=== PATIENT | female | born 1935 | race Caucasian/White ===

== ENCOUNTER → 2020-05-25 | Outpatient (CLI) | payer MEDICARE ==
[2020-05-25 18:40] LABS: HEMATOCRIT 42 % (35-52); HEMOGLOBIN 13.7 G/DL (11.5-16.0); MEAN CORPUSCULAR HEMOGLOBIN 28 PG (25-34); MEAN CORPUSCULAR HGB CONC 32 G/DL (32-36); MEAN CORPUSCULAR VOLUME 86 FL (80-99); WHITE BLOOD COUNT 11.6 10^3/uL (4.3-11.0)
[2020-05-25 18:41] LABS: BASOPHILS # (AUTO) 0.1 10^3/uL (0.0-0.1); BASOPHILS % (AUTO) 1 % (0-10); EOSINOPHILS # (AUTO) 0.5 10^3/uL (0.0-0.3); EOSINOPHILS % (AUTO) 4 % (0-10); LYMPHOCYTES # (AUTO) 2.2 X 10^3 (1.0-4.0); LYMPHOCYTES % (AUTO) 19 % (12-44); MEAN PLATELET VOLUME 10.5 FL (7.4-10.4); MONOCYTES # (AUTO) 1.1 X 10^3 (0.0-1.0); MONOCYTES % (AUTO) 10 % (0-12); NEUTROPHILS # (AUTO) 7.6 X 10^3 (1.8-7.8); NEUTROPHILS % (AUTO) 66 % (42-75); PLATELET COUNT 261 10^3/uL (130-400)
[2020-05-26 16:29] LABS: BILIRUBIN,TOTAL 0.5 MG/DL (0.1-1.0); CREATININE SERUM 1.66 MG/DL (0.60-1.30); POTASSIUM 5.6 MMOL/L (3.6-5.0)
[2020-05-26 16:30] LABS: ALBUMIN 4.4 GM/DL (3.2-4.5); TOTAL PROTEIN 7.8 GM/DL (6.4-8.2)
== END ==
LOC: LAB FS 16:37
PROVIDERS: ATTEND Family Medicine
DX: E11.9 Type 2 diabetes mellitus without complications (principal); D64.9 Anemia, unspecified; E03.9 Hypothyroidism, unspecified
CPT/HCPCS: 36415; 80053; 80061; 82043; 83036; 84443; 85025

== ENCOUNTER → 2020-06-01 | Outpatient (CLI) | payer MEDICARE ==
[2020-06-01 12:14] LABS: CLARITY,URINE CLEAR; COLOR,URINE YELLOW; GLUCOSE, URINE (UA) 3+ (NEGATIVE); PH,URINE 5.5 (5-9); PROTEIN,URINE NEGATIVE (NEGATIVE)
[2020-06-01 12:15] LABS: BACTERIA,URINE NEGATIVE /HPF; BILIRUBIN,URINE NEGATIVE (NEGATIVE); KETONES,URINE NEGATIVE (NEGATIVE); LEUKOCYTE ESTERASE ,URINE NEGATIVE (NEGATIVE); NITRITE,URINE NEGATIVE (NEGATIVE); SQUAMOUS EPITHELIAL CELL,UR 0-2 /HPF
== END ==
LOC: LAB FS 11:17
PROVIDERS: ATTEND Family Medicine
DX: R41.0 Disorientation, unspecified (principal)
CPT/HCPCS: 81000

== ENCOUNTER → 2020-06-02 | Outpatient (CLI) | payer MEDICARE ==
[2020-06-02 10:18] LABS: CALCIUM 9.8 MG/DL (8.5-10.1); CREATININE SERUM 1.35 MG/DL (0.60-1.30); POTASSIUM 5.2 MMOL/L (3.6-5.0)
== END ==
LOC: LAB FS 09:16
PROVIDERS: ATTEND Family Medicine
DX: R41.0 Disorientation, unspecified (principal)
CPT/HCPCS: 36415; 80048

== ENCOUNTER → 2020-06-17 | Outpatient (CLI) | payer MEDICARE ==
[2020-06-17 15:35] LABS: CLARITY,URINE CLEAR; COLOR,URINE YELLOW; GLUCOSE, URINE (UA) TRACE (NEGATIVE); PH,URINE 5.5 (5-9); PROTEIN,URINE 1+ (NEGATIVE)
[2020-06-17 15:36] LABS: BACTERIA,URINE TRACE /HPF; BILIRUBIN,URINE NEGATIVE (NEGATIVE); KETONES,URINE NEGATIVE (NEGATIVE); LEUKOCYTE ESTERASE ,URINE 1+ (NEGATIVE); NITRITE,URINE NEGATIVE (NEGATIVE); SQUAMOUS EPITHELIAL CELL,UR 0-2 /HPF
== END ==
LOC: LAB FS 15:15
PROVIDERS: ATTEND Family Medicine
DX: R41.0 Disorientation, unspecified (principal)
CPT/HCPCS: 81000; 87088

== ENCOUNTER → 2020-06-26 | Outpatient (CLI) | payer MEDICARE | LOC: LAB FS 10:47 | PROVIDERS: ATTEND Family Medicine | DX: R41.0 Disorientation, unspecified (principal) | CPT/HCPCS: 36415; 82607 ==

== ENCOUNTER 2020-07-03 17:07 | Emergency (ER) | payer MEDICARE ==
[~2020-07-03] VITALS: Ht 162.6 cm; Wt 70.3 kg
--- NOTE | 2020-07-03 17:16 | ED Chest Pain ---
General Chief Complaint: Chest Pain Stated Complaint: CHEST PAIN Source: patient Exam Limitations: no limitations History of Present Illness Date Seen by Provider: Jul 03, 2020 Time Seen by Provider: 17:14 Initial Comments 85-year-old female presents with left-sided chest pain. She reports it comes and goes. Over the last year it has happened 3 or 4 times. She is here because she was "encouraged by her daughter" patient is not having pain at this time. She reports that when it happens it lasts for 30 minutes to an hour. Patient says maybe she get short of breath is not really sure. She does not get nauseated no vomiting or diaphoresis the pain does not radiate. The pain started when she was sent to [facility]. She states that nothing seems to make it worse or better and when it happened she's nothing seems to trigger it. Patient reports she had open heart surgery 2 years ago and [place]. She has not followed with her racing mechanic in the last year since she started having these occasional pains. Pain is reproducible with palpation to the area Allergies and Home Medications Allergies Coded Allergies: No Known Drug Allergies (Unverified , 07/03/20) Patient Home Medication List Home Medication List Reviewed: Yes Review of Systems Review of Systems Constitutional: No chills, No fever Respiratory: Denies Cough, Denies Orthopnea Cardiovascular: Chest Pain; Denies Irregular Heart Rate, Denies Palpitations Gastrointestinal: Abdominal Pain; Denies Nausea; Poor Appetite; Denies Vomiting Skin: no symptoms reported Past Bbodnxi-Zkznsq-Pdebuc Hx Past Med/Social Hx: Reviewed Nursing Past Med/Soc Hx Physical Exam Vital Signs Vital Signs - First Documented 07/03/20 17:12 Pulse 70 Resp 20 B/P (MAP) 158/97 (117) Pulse Ox 95 O2 Delivery Room Air Capillary Refill : Height, Weight, BMI Height: '" Weight: lbs. oz. 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 Norm as Tested Skin: Normal Color, Warm/Dry Progress/Results/Core Measures Results/Orders Lab Results Laboratory Tests Test 07/03/20 18:00 07/03/20 20:08 Range/Units White Blood Count 9.1 4.3-11.0 10^3/uL Red Blood Count 4.37 4.35-5.85 10^6/uL Hemoglobin 12.1 11.5-16.0 G/DL Hematocrit 37 35-52 % Mean Corpuscular Volume 85 80-99 FL Mean Corpuscular Hemoglobin 28 25-34 PG Mean Corpuscular Hemoglobin Concent 33 32-36 G/DL Red Cell Distribution Width 12.7 10.0-14.5 % Platelet Count 206 130-400 10^3/uL Mean Platelet Volume 10.3 7.4-10.4 FL Immature Granulocyte % (Auto) 0 % Neutrophils (%) (Auto) 65 42-75 % Lymphocytes (%) (Auto) 21 12-44 % Monocytes (%) (Auto) 10 0-12 % Eosinophils (%) (Auto) 4 0-10 % Basophils (%) (Auto) 1 0-10 % Neutrophils # (Auto) 5.9 1.8-7.8 X 10^3 Lymphocytes # (Auto) 1.9 1.0-4.0 X 10^3 Monocytes # (Auto) 0.9 0.0-1.0 X 10^3 Eosinophils # (Auto) 0.4 H 0.0-0.3 10^3/uL Basophils # (Auto) 0.1 0.0-0.1 10^3/uL Immature Granulocyte # (Auto) 0.0 0.0-0.1 10^3/uL Prothrombin Time 13.1 12.2-14.7 SEC INR Comment 1.0 0.8-1.4 Activated Partial Thromboplast Time 22 L 24-35 SEC Sodium Level 133 L 135-145 MMOL/L Potassium Level 4.6 3.6-5.0 MMOL/L Chloride Level 99 98-107 MMOL/L Carbon Dioxide Level 22 21-32 MMOL/L Anion Gap 12 5-14 MMOL/L Blood Urea Nitrogen 27 H 7-18 MG/DL Creatinine 1.26 0.60-1.30 MG/DL Estimat Glomerular Filtration Rate 40 BUN/Creatinine Ratio 21 Glucose Level 158 H 70-105 MG/DL Calcium Level 9.9 8.5-10.1 MG/DL Corrected Calcium 9.7 8.5-10.1 MG/DL Magnesium Level 1.4 L 1.6-2.4 MG/DL Total Bilirubin 0.3 0.1-1.0 MG/DL Aspartate Amino Transf (AST/SGOT) 31 5-34 U/L Alanine Aminotransferase (ALT/SGPT) 23 0-55 U/L Alkaline Phosphatase 70 40-136 U/L Myoglobin 38.2 10.0-92.0 NG/ML Troponin I < 0.30 < 0.30 <0.30 NG/ML Total Protein 6.9 6.4-8.2 GM/DL Albumin 4.2 3.2-4.5 GM/DL My Orders Orders - JORDAN,QUINN L DO Cbc With Automated Diff (07/03/20 17:16) Magnesium (07/03/20 17:16) Chest 1 View Ap/Pa Only (07/03/20 17:16) Ekg Tracing (07/03/20 17:16) Comprehensive Metabolic Panel (07/03/20 17:16) Myoglobin Serum (07/03/20 17:16) Protime With Inr (07/03/20 17:16) Partial Thromboplastin Time (07/03/20 17:16) O2 (07/03/20 17:16) Monitor-Rhythm Ecg Trace Only (07/03/20 17:16) Ed Iv/Invasive Line Start (07/03/20 17:16) Troponin I Fs (07/03/20 17:16) Aspirin Chewable Tablet (Baby Aspirin Ch (07/03/20 17:30) Famotidine Injection (Pepcid Injection) (07/03/20 17:20) Ekg Tracing (07/03/20 19:33) Troponin I Fs (07/03/20 19:33) Medications Given in ED Current Medications Medications Dose Ordered Sig/Sin Route Start Time Stop Time Status Last Admin Dose Admin Aspirin 324 mg ONCE ONCE PO 07/03/20 17:30 07/03/20 17:31 DC 07/03/20 18:17 324 MG Vital Signs/I&O 07/03/20 07/03/20 07/03/20 17:12 17:17 21:05 Pulse 70 96 Resp 20 20 B/P (MAP) 158/97 (117) 165/70 Pulse Ox 95 97 O2 Delivery Room Air Room Air Room Air Progress Progress Note : Time: 20:50 Progress Note Since chest pain had resolved prior to arrival to the ER with no further chest pain while in the ER. Patient had 2 negative troponins and no acute ST elevation on EKG. Patient was offered admission for further evaluation but she would prefer to follow-up with her racing mechanic next week. She will return to the ER if symptoms return or worsen. Patient stable and will be discharged home. Initial ECG Impression Date: Jul 03, 2020 Initial ECG Impression Time: 17:30 Initial ECG Rate: 72 Initial ECG Rhythm: Normal Sinus Initial ECG Intervals RBBB Comment NSR HR 72, RBBB, no acute findings Diagnostic Imaging Diagonstic Imaging: Xray Plain Films/CT/US/NM/MRI: chest Comments [facility], [place] NAME: RANDY COBURN [facility] REC#: [id number] PT STATUS: REG ER : 1935 PHYSICIAN: QUINN JORDAN DO ADMIT DATE: 07/03/20/ER FS Signed Date of Exam:07/03/20 CHEST 1 VIEW AP/PA ONLY INDICATION: Chest pain. COMPARISON: None. EXAMINATION: Single frontal view of the chest was obtained. FINDINGS: Normal heart size and pulmonary vascularity. The lungs are well aerated and clear. No large pleural effusion or pneumothorax is seen. The visualized osseous structures show no acute abnormality. Sternotomy wires are noted. IMPRESSION: No acute cardiopulmonary process. Dictated by: Dictated on workstation # [id number] Dict: 07/03/20 1730 Trans: 07/03/20 1745 [facility] [id number] Interpreted by: ANASTASIIA WILLIAMSON MD Departure Impression Primary Impression: Chest pain Qualified Codes: R07.9 - Chest pain, unspecified Disposition: HOME, SELF-CARE Condition: Stable Departure-Patient Inst. Referrals: HEBER BETHEA MD (PCP/Family) Primary Care Physician Patient Instructions: Chest Pain (DC) Add. Discharge Instructions: Follow-up with your racing mechanic and primary care provider next week for further evaluation Return to the ER with any concerns such as recurrent chest pain, shortness of breath or pain that radiates into her arm or neck. All discharge instructions reviewed with patient and/or family. Voiced understanding. QUINN JORDAN DO Jul 03, 2020 17:16
[2020-07-03] MEDS ORDERED: FAMOTIDINE 20MG/2ML IV (PEPCID) IV STA (17:20)
[2020-07-03] MEDS ORDERED: ASPIRIN 81 MG CHEW (CHILDREN'S ASA) PO ONE (17:30)
--- NOTE | 2020-07-03 17:43 | Diagnostic Imaging Report ---
INDICATION: Chest pain. COMPARISON: None. EXAMINATION: Single frontal view of the chest was obtained. FINDINGS: Normal heart size and pulmonary vascularity. The lungs are well aerated and clear. No large pleural effusion or pneumothorax is seen. The visualized osseous structures show no acute abnormality. Sternotomy wires are noted. IMPRESSION: No acute cardiopulmonary process. Dictated by: Dictated on workstation # [id number]
[2020-07-03 18:09] LABS: HEMATOCRIT 37 % (35-52); HEMOGLOBIN 12.1 G/DL (11.5-16.0); MEAN CORPUSCULAR HEMOGLOBIN 28 PG (25-34); MEAN CORPUSCULAR VOLUME 85 FL (80-99); WHITE BLOOD COUNT 9.1 10^3/uL (4.3-11.0)
[2020-07-03 18:10] LABS: BASOPHILS # (AUTO) 0.1 10^3/uL (0.0-0.1); BASOPHILS % (AUTO) 1 % (0-10); EOSINOPHILS # (AUTO) 0.4 10^3/uL (0.0-0.3); EOSINOPHILS % (AUTO) 4 % (0-10); LYMPHOCYTES # (AUTO) 1.9 X 10^3 (1.0-4.0); LYMPHOCYTES % (AUTO) 21 % (12-44); MEAN CORPUSCULAR HGB CONC 33 G/DL (32-36); MEAN PLATELET VOLUME 10.3 FL (7.4-10.4); MONOCYTES # (AUTO) 0.9 X 10^3 (0.0-1.0); MONOCYTES % (AUTO) 10 % (0-12); NEUTROPHILS # (AUTO) 5.9 X 10^3 (1.8-7.8); NEUTROPHILS % (AUTO) 65 % (42-75); PLATELET COUNT 206 10^3/uL (130-400)
[2020-07-03 18:31] LABS: PROTHROMBIN TIME PATIENT 13.1 SEC (12.2-14.7)
[2020-07-03 18:32] LABS: CALCIUM 9.9 MG/DL (8.5-10.1); CREATININE SERUM 1.26 MG/DL (0.60-1.30); MAGNESIUM 1.4 MG/DL (1.6-2.4); POTASSIUM 4.6 MMOL/L (3.6-5.0)
[2020-07-03 18:33] LABS: ALBUMIN 4.2 GM/DL (3.2-4.5); BILIRUBIN,TOTAL 0.3 MG/DL (0.1-1.0); TOTAL PROTEIN 6.9 GM/DL (6.4-8.2)
[2020-07-03 21:05] VITALS: BP 165/70
== END 2020-07-03 21:09 | disposition home or self-care (01) ==
LOC: EDUNIT# 17:07 → ER FS 17:09
DX: R07.9 Chest pain, unspecified (principal)
CPT/HCPCS: 36415; 71045; 80053; 83735; 83874; 84484; 85025; 85610; 85730; 93005; 93041

== ENCOUNTER → 2020-08-31 | Outpatient (CLI) | payer MEDICARE ==
[2020-08-31 10:03] LABS: CREATININE SERUM 1.36 MG/DL (0.60-1.30); POTASSIUM 5.1 MMOL/L (3.6-5.0)
[2020-08-31 10:04] LABS: ALBUMIN 4.1 GM/DL (3.2-4.5); BILIRUBIN,TOTAL 0.4 MG/DL (0.1-1.0); CALCIUM 9.8 MG/DL (8.5-10.1)
== END ==
LOC: LAB FS 09:15
PROVIDERS: ATTEND Family Medicine
DX: E11.9 Type 2 diabetes mellitus without complications (principal); E03.9 Hypothyroidism, unspecified; R41.0 Disorientation, unspecified
CPT/HCPCS: 36415; 80053; 80061; 82607; 83036; 84443

== ENCOUNTER → 2020-09-01 | Outpatient (CLI) | payer MEDICARE ==
--- NOTE | 2020-09-01 10:54 | Diagnostic Imaging Report ---
INDICATION: PAIN IN RIGHT HIP, post fall last night TECHNIQUE: 2 views of the right hip. CORRELATION STUDY: None FINDINGS: Images of the hip demonstrate no evidence for acute fracture. Alignment is anatomic. The femoral head acetabular relationship is unremarkable. The bony trabecular pattern is intact. IMPRESSION: 1. Negative for acute bony abnormality of the right hip. Dictated by: Dictated on workstation # [id number]
== END ==
LOC: RAD FS 10:20
PROVIDERS: ATTEND Family Medicine
DX: M25.551 Pain in right hip (principal)
CPT/HCPCS: 73502

== ENCOUNTER → 2020-11-09 | Outpatient (CLI) | payer MEDICARE ==
--- NOTE | 2020-11-09 14:34 | Diagnostic Imaging Report ---
INDICATION: INJURY OF RIGHT SHOULDER TECHNIQUE: 2 views of the right shoulder CORRELATION STUDY: None FINDINGS: The glenohumeral and acromioclavicular alignment are maintained and unremarkable. There is no evidence for acute fracture or dislocation. Mild soft tissue calcification with superior lateral humeral head, could be reflective of calcific tendinosis. IMPRESSION: 1. Negative for acute bony abnormality about the shoulder. Dictated by: Dictated on workstation # [id number]
== END ==
LOC: RAD FS 13:57
PROVIDERS: ATTEND Family Medicine
DX: S49.91XA Unspecified injury of right shoulder and upper arm, initial encounter (principal); X58.XXXA Exposure to other specified factors, initial encounter
CPT/HCPCS: 73030

== ENCOUNTER → 2020-11-30 | Outpatient (CLI) | payer MEDICARE ==
[2020-11-30 11:52] LABS: ALBUMIN 4.2 GM/DL (3.2-4.5); BILIRUBIN,TOTAL 0.4 MG/DL (0.1-1.0); CALCIUM 9.9 MG/DL (8.5-10.1); CREATININE SERUM 1.32 MG/DL (0.60-1.30); TOTAL PROTEIN 7.3 GM/DL (6.4-8.2)
== END ==
LOC: LAB FS 08:44
PROVIDERS: ATTEND Family Medicine
DX: E11.9 Type 2 diabetes mellitus without complications (principal)
CPT/HCPCS: 36415; 80053; 83036

== ENCOUNTER → 2021-03-05 | Outpatient (CLI) | payer MEDICARE ==
[2021-03-05 10:21] LABS: BILIRUBIN,TOTAL 0.4 MG/DL (0.1-1.0); CALCIUM 9.8 MG/DL (8.5-10.1); CREATININE SERUM 1.29 MG/DL (0.60-1.30); POTASSIUM 4.8 MMOL/L (3.6-5.0)
[2021-03-05 10:22] LABS: TOTAL PROTEIN 6.9 GM/DL (6.4-8.2)
== END ==
LOC: LAB FS 09:08
PROVIDERS: ATTEND Family Medicine
DX: E11.9 Type 2 diabetes mellitus without complications (principal); E03.9 Hypothyroidism, unspecified
CPT/HCPCS: 36415; 80053; 83036; 84443

== ENCOUNTER → 2021-03-17 | Outpatient (CLI) | payer MEDICARE | LOC: CARD 08:33 | PROVIDERS: ATTEND Student in an Organized Health Care Education/Training Program | DX: I08.0 Rheumatic disorders of both mitral and aortic valves (principal); I42.1 Obstructive hypertrophic cardiomyopathy; Z95.2 Presence of prosthetic heart valve | CPT/HCPCS: 93306 ==

== ENCOUNTER 2021-07-24 21:31 | Inpatient (IN) | payer MEDICARE ==
[~2021-07-24] VITALS: Ht 162.6 cm; Wt 70.6 kg
[2021-07-24] MEDS ORDERED: LACTATED RINGERS 1,000 ML IV SCH (22:00)
[2021-07-24 22:03] LABS: BASOPHILS % (AUTO) 1 % (0-10); EOSINOPHILS % (AUTO) 6 % (0-10); HEMATOCRIT 37 % (35-52); HEMOGLOBIN 12.5 g/dL (11.5-16.0); LYMPHOCYTES # (AUTO) 2.9 X 10^3 (1.0-4.0); LYMPHOCYTES % (AUTO) 24 % (12-44); MEAN CORPUSCULAR HEMOGLOBIN 28 pg (25-34); MEAN CORPUSCULAR HGB CONC 34 g/dL (32-36); MEAN CORPUSCULAR VOLUME 83 fL (80-99); MONOCYTES # (AUTO) 1.3 X 10^3 (0.0-1.0); MONOCYTES % (AUTO) 11 % (0-12); NEUTROPHILS # (AUTO) 6.7 X 10^3 (1.8-7.8); NEUTROPHILS % (AUTO) 57 % (42-75); PLATELET COUNT 278 10^3/uL (130-400); WHITE BLOOD COUNT 11.7 10^3/uL (4.3-11.0)
[2021-07-24 22:04] LABS: BASOPHILS # (AUTO) 0.1 10^3/uL (0.0-0.1); EOSINOPHILS # (AUTO) 0.7 10^3/uL (0.0-0.3)
[2021-07-24 22:05] LABS: PROTHROMBIN TIME PATIENT 13.2 SEC (12.2-14.7)
[2021-07-24 22:06] LABS: ALANINE AMINOTRANSFERASE 18 U/L (0-55); ALKALINE PHOSPHATASE 70 U/L (40-136); BILIRUBIN,TOTAL 0.3 MG/DL (0.1-1.0); BUN/CREATININE RATIO 25; CALCIUM 9.8 MG/DL (8.5-10.1); CARBON DIOXIDE 18 MMOL/L (21-32); CHLORIDE 93 MMOL/L (98-107); CREATININE SERUM 1.92 MG/DL (0.60-1.30); GFR ESTIMATED 25; GLUCOSE 69 MG/DL (70-105); POTASSIUM 4.7 MMOL/L (3.6-5.0); SODIUM 126 MMOL/L (135-145)
--- NOTE | 2021-07-24 22:06 | ED General ---
General Chief Complaint: Altered Mental Status Stated Complaint: ALTERED MENTAL STATUS Nursing Triage Note: pt arrives per POV w/ daughters. Pt assisted out of vehicle to wheelchair. Into ED to Room 5. Assisted to bed, placed in gown and attached to lunchroom monitor. Source of Information: Patient, Family Exam Limitations: No Limitations History of Present Illness Date Seen by Provider: Jul 24, 2021 Time Seen by Provider: 21:35 Initial Comments 86-year-old female with past medical history of heart valve replacement (family unsure which valve) not on anticoagulation, thyroid disease, diu-zgtserw-zhhosdhpr diabetic coming in due to confusion. The patient lives with her daughter who provides the majority of the history. The patient has had nonbloody diarrhea for almost 1 week now and has been significant. She has not been on antibiotics recently. She started taking Imodium and it finally did slow down today. Went to urgent care this morning was also prescribed dicyclomine and had 2 doses of that today. Flu and COVID testing were negative at the urgent care. Around 9:00 became more confused and was answering questions inappropriately for family. They then brought her here. Patient is denying any pain anywhere, nausea, vomiting, chest pain, shortness of breath, abdominal pain, focal weakness, numbness, vision changes, headache, fever, or any other concerns. Allergies and Home Medications Allergies Coded Allergies: No Known Drug Allergies (Unverified , 07/03/20) Patient Home Medication List Home Medication List Reviewed: Yes Levothyroxine Sodium (Levothyroxine Sodium) 50 Mcg Tablet, 50 MCG PO DAILY, (Reported) Entered as Reported by: TELLO MACIEL on 07/25/21557 Last Action: Reviewed Lisinopril (Lisinopril) 20 Mg Tablet, 20 MG PO DAILY, (Reported) Entered as Reported by: TELLO MACIEL on 07/25/21555 Last Action: Reviewed Metformin HCl (Metformin HCl) 500 Mg Tablet, 500 MG PO BID WITH MEALS, (Reported) Entered as Reported by: TELLO MACIEL on 07/25/21557 Last Action: Reviewed Metoprolol Tartrate (Metoprolol Tartrate) 50 Mg Tablet, 50 MG PO DAILY, (Reported) Entered as Reported by: TELLO MACIEL on 07/25/21555 Last Action: Reviewed Metoprolol Tartrate (Metoprolol Tartrate) 25 Mg Tablet, 25 MG PO HS, (Reported) Entered as Reported by: TELLO MACIEL on 07/25/21 0556 Last Action: Reviewed Pravastatin Sodium (Pravastatin Sodium) 40 Mg Tablet, 40 MG PO DAILY, (Reported) Entered as Reported by: TELLO MACIEL on 07/25/21 0558 Last Action: Reviewed Review of Systems Review of Systems Constitutional: No chills, No fever EENTM: No blurred vision Respiratory: No cough, No short of breath Cardiovascular: No chest pain Gastrointestinal: No abdominal pain; diarrhea; No nausea, No vomiting Genitourinary: no symptoms reported Musculoskeletal: no symptoms reported Skin: no symptoms reported Psychiatric/Neurological: Other (AMS) Hematologic/Lymphatic: No Symptoms Reported Immunological/Allergic: no symptoms reported All Other Systems Reviewed Negative Unless Noted: Yes Past Ocacasy-Ckekyn-Crzhgd Hx Patient Social History Tobacco Use?: No Seasonal Allergies Seasonal Allergies: No Past Medical History Surgeries: Yes (colon resection) CABG Respiratory: No Cardiac: Yes Coronary Artery Disease, Heart Attack Neurological: No Genitourinary: No Gastrointestinal: No Musculoskeletal: No Endocrine: Yes Diabetes, Insulin dep HEENT: No Cancer: No Psychosocial: No Integumentary: No Physical Exam Vital Signs Vital Signs - First Documented 07/24/21 21:57 Temp 35.5 Pulse 71 Resp 16 B/P (MAP) 103/54 (70) Pulse Ox 97 O2 Delivery Simple Mask Capillary Refill : Height, Weight, BMI Height: '" Weight: lbs. oz. kg; 26.00 BMI Method: General Appearance: No Apparent Distress, WD/WN Eyes: Bilateral Eye Normal Inspection HEENT: PERRL/EOMI, Normal ENT Inspection, Pharynx Normal Neck: Full Range of Motion, Normal Inspection, Non Tender, Supple Respiratory: Chest Non Tender, Lungs Clear, Normal Breath Sounds, No Accessory Muscle Use, No Respiratory Distress Cardiovascular: Regular Rate, Rhythm, No Edema, Normal Peripheral Pulses Gastrointestinal: Normal Bowel Sounds, Non Tender, Soft; No Distended, No Guarding Back: Normal Inspection, No CVA Tenderness, No Vertebral Tenderness Extremity: Normal Capillary Refill, Normal Inspection, Normal Range of Motion, Non Tender, No Calf Tenderness, No Pedal Edema Neurologic/Psychiatric: Alert, No Motor/Sensory Deficits, Normal Mood/Affect, 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 Norm as Tested, Disoriented Skin: Normal Color, Warm/Dry Lymphatic: No Adenopathy Progress/Results/Core Measures Suspected Sepsis SIRS Temperature: Pulse: 71 Respiratory Rate: 16 Laboratory Tests 07/24/21 21:44: White Blood Count 11.7H Blood Pressure 103 /54 Mean: 70 Laboratory Tests 07/24/21 21:44: Creatinine 1.92H, INR Comment 1.0, Platelet Count 278, Total Bilirubin 0.3 Results/Orders Lab Results Laboratory Tests Test 07/24/21 21:44 07/24/21 22:09 Range/Units White Blood Count 11.7 H 4.3-11.0 10^3/uL Red Blood Count 4.50 3.80-5.11 10^6/uL Hemoglobin 12.5 11.5-16.0 g/dL Hematocrit 37 35-52 % Mean Corpuscular Volume 83 80-99 fL Mean Corpuscular Hemoglobin 28 25-34 pg Mean Corpuscular Hemoglobin Concent 34 32-36 g/dL Red Cell Distribution Width 12.8 10.0-14.5 % Platelet Count 278 130-400 10^3/uL Mean Platelet Volume 10.0 9.0-12.2 fL Immature Granulocyte % (Auto) 0 % Neutrophils (%) (Auto) 57 42-75 % Lymphocytes (%) (Auto) 24 12-44 % Monocytes (%) (Auto) 11 0-12 % Eosinophils (%) (Auto) 6 0-10 % Basophils (%) (Auto) 1 0-10 % Neutrophils # (Auto) 6.7 1.8-7.8 X 10^3 Lymphocytes # (Auto) 2.9 1.0-4.0 X 10^3 Monocytes # (Auto) 1.3 H 0.0-1.0 X 10^3 Eosinophils # (Auto) 0.7 H 0.0-0.3 10^3/uL Basophils # (Auto) 0.1 0.0-0.1 10^3/uL Immature Granulocyte # (Auto) 0.0 0.0-0.1 10^3/uL Prothrombin Time 13.2 12.2-14.7 SEC INR Comment 1.0 0.8-1.4 Activated Partial Thromboplast Time 28 24-35 SEC Sodium Level 126 L 135-145 MMOL/L Potassium Level 4.7 3.6-5.0 MMOL/L Chloride Level 93 L 98-107 MMOL/L Carbon Dioxide Level 18 L 21-32 MMOL/L Anion Gap 15 H 5-14 MMOL/L Blood Urea Nitrogen 48 H 7-18 MG/DL Creatinine 1.92 H 0.60-1.30 MG/DL Estimat Glomerular Filtration Rate 25 BUN/Creatinine Ratio 25 Glucose Level 69 L 70-105 MG/DL Calcium Level 9.8 8.5-10.1 MG/DL Corrected Calcium 9.8 8.5-10.1 MG/DL Total Bilirubin 0.3 0.1-1.0 MG/DL Aspartate Amino Transf (AST/SGOT) 26 5-34 U/L Alanine Aminotransferase (ALT/SGPT) 18 0-55 U/L Alkaline Phosphatase 70 40-136 U/L Troponin I < 0.30 <0.30 NG/ML Total Protein 7.3 6.4-8.2 GM/DL Albumin 4.0 3.2-4.5 GM/DL Glucometer 69 L 70-110 MG/DL My Orders Orders - LYLE BHARDWAJ MD Ct Head Wo (07/24/21 21:57) Cbc With Automated Diff (07/24/21 21:57) Comprehensive Metabolic Panel (07/24/21 21:57) Protime With Inr (07/24/21 21:57) Partial Thromboplastin Time (07/24/21 21:57) Ua Culture If Indicated (07/24/21 21:57) Accucheck Stat ONCE (07/24/21 21:57) Troponin I Fs (07/24/21 21:57) Chest 1 View Ap/Pa Only (07/24/21 21:57) Ekg Tracing (07/24/21 21:57) Lactated Ringers (Lr 1000 Ml Iv Solution (07/24/21 22:00) Vital Signs/I&O 07/24/21 07/25/21 21:57 03:35 Temp 35.5 Pulse 71 Resp 16 B/P (MAP) 103/54 (70) Pulse Ox 97 O2 Delivery Simple Mask Room Air Capillary Refill : Blood Pressure Mean: 70 Progress Note : Progress Note 86-year-old female with above history coming in with family due to confusion and diarrhea. ABCs were intact and vitals were stable on presentation. Initial blood pressure is slightly low around 100/60. An IV was placed and she was given a bolus of IV fluids with improvement in her blood pressure. Basic labs significant for low sodium at 127, ETTA with creatinine around 1.9, negative troponin. Chest x-ray ordered and interpreted by me with no obvious pneumonia. CT head negative for any acute abnormalities, and her exam on repeat is nonfocal again. No signs of stroke clinically. She does not have slurred speech for me. She is however confused, and with a low sodium and worsening kidney function I recommended admission. Discussed the case with Dr. Prajapati who will admit her under observation status. ECG Initial ECG Impression Date: Jul 24, 2021 Initial ECG Impression Time: 22:29 Initial ECG Rate: 67 Initial ECG Rhythm: Normal Sinus Comment Wide QRS with a right bundle branch block, no significant ST changes Diagnostic Imaging Diagonstic Imaging: Xray (chest), CT (head) [facility] [place] [place] NAME: RANDY COBURN [facility] REC#: [id number] PT STATUS: REG ER : 1935 PHYSICIAN: LYLE BHARDWAJ MD ADMIT DATE: 07/24/21/ER FS Draft Date of Exam:07/24/21 CT HEAD WO INDICATION: Acute mental status changes. EXAMINATION: CT brain without contrast, 07/24/2021. All CT scans use one or more of the following dose optimizing techniques: automated exposure control, MA and/or KvP adjustment based on patient size and exam type or iterative reconstruction. FINDINGS: Multiple axial images of the brain without contrast. There is no evidence for acute hemorrhage or infarct. There is no mass, mass effect, midline shift or hydrocephalus. The paranasal sinuses and mastoid air cells demonstrate no acute abnormality. IMPRESSION: No acute intracranial process. Dictated on workstation # [id number] Dict: 07/24/212226 Trans: 07/24/212229 PJE [id number] Interpreted by: HANK SCALES MD Electronically signed by: [facility] [place] [place] NAME: RANDY COBURN [facility] REC#: [id number] PT STATUS: REG ER : 1935 PHYSICIAN: LYLE BHARDWAJ MD ADMIT DATE: 07/24/21/ER FS Signed Date of Exam:07/24/21 CHEST 1 VIEW AP/PA ONLY INDICATION: Acute mental status change. EXAMINATION: Chest, 07/24/2021. COMPARISON: 07/03/2020. FINDINGS: There are calcified lymph nodes in the left perihilar region with a calcified granuloma in the left lung base. There are no infiltrates, effusions or pneumothorax. The heart and pulmonary vasculature appear stable. Sternotomy wires and mediastinal clips are noted. IMPRESSION: Chronic findings with no acute cardiopulmonary process. Dictated by: Dictated on workstation # [id number] Dict: 07/24/212236 Trans: 07/24/212246 PJE [id number] Interpreted by: HANK SCALES MD Electronically signed by: HANK SCALES MD 07/24/212246 Departure Impression Primary Impression: ETTA (acute kidney injury) Additional Impressions: Hyponatremia Confusion Diarrhea Qualified Codes: R19.7 - Diarrhea, unspecified Disposition: 30 STILL A PATIENT Condition: Stable Admissions Decision to Admit Reason: Admit from ER (General) Decision to Admit/Date: Jul 25, 2021 Time/Decision to Admit Time: 23:30 Transfer Method of Transfer: EMS Departure-Patient Inst. Referrals: HEBER BETHEA MD (PCP/Family) Primary Care Physician LYLE BHARDWAJ MD Jul 24, 2021 22:06
[2021-07-24 22:07] LABS: TOTAL PROTEIN 7.3 GM/DL (6.4-8.2)
--- NOTE | 2021-07-24 22:30 | Diagnostic Imaging Report ---
INDICATION: Acute mental status changes. EXAMINATION: CT brain without contrast, 07/24/2021. All CT scans use one or more of the following dose optimizing techniques: automated exposure control, MA and/or KvP adjustment based on patient size and exam type or iterative reconstruction. FINDINGS: Multiple axial images of the brain without contrast. There is no evidence for acute hemorrhage or infarct. There is no mass, mass effect, midline shift or hydrocephalus. The paranasal sinuses and mastoid air cells demonstrate no acute abnormality. IMPRESSION: No acute intracranial process. Dictated by: Dictated on workstation # [id number]
--- NOTE | 2021-07-24 22:46 | Diagnostic Imaging Report ---
INDICATION: Acute mental status change. EXAMINATION: Chest, 07/24/2021. COMPARISON: 07/03/2020. FINDINGS: There are calcified lymph nodes in the left perihilar region with a calcified granuloma in the left lung base. There are no infiltrates, effusions or pneumothorax. The heart and pulmonary vasculature appear stable. Sternotomy wires and mediastinal clips are noted. IMPRESSION: Chronic findings with no acute cardiopulmonary process. Dictated by: Dictated on workstation # [id number]
[2021-07-25] MEDS ORDERED: LACTATED RINGERS 1,000 ML IV SCH (04:00)
[2021-07-25 04:11] VITALS: BP 126/65
[2021-07-25] MEDS ORDERED: LISI20TA26 PO (05:56)
[2021-07-25] MEDS ORDERED: METO50TA15 PO (05:56)
[2021-07-25] MEDS ORDERED: METO-333 PO (05:56)
[2021-07-25] MEDS ORDERED: METF-397 PO (05:58)
[2021-07-25] MEDS ORDERED: LEVO50TA6 PO (05:58)
[2021-07-25] MEDS ORDERED: PRAV40TA2 PO (05:58)
[2021-07-25 05:59] LABS: BASOPHILS % (AUTO) 0 % (0-10); EOSINOPHILS # (AUTO) 0.5 10^3/uL (0.0-0.3); EOSINOPHILS % (AUTO) 6 % (0-10); HEMATOCRIT 35 % (35-52); HEMOGLOBIN 11.8 g/dL (11.5-16.0); LYMPHOCYTES # (AUTO) 1.9 10^3/uL (1.0-4.0); LYMPHOCYTES % (AUTO) 20 % (12-44); MEAN CORPUSCULAR HEMOGLOBIN 28 pg (25-34); MEAN CORPUSCULAR HGB CONC 33 g/dL (32-36); MEAN CORPUSCULAR VOLUME 83 fL (80-99); MEAN PLATELET VOLUME 10.2 fL (9.0-12.2); MONOCYTES # (AUTO) 1.1 10^3/uL (0.0-1.0); MONOCYTES % (AUTO) 12 % (0-12); NEUTROPHILS # (AUTO) 5.9 10^3/uL (1.8-7.8); NEUTROPHILS % (AUTO) 62 % (42-75); PLATELET COUNT 232 10^3/uL (130-400); WHITE BLOOD COUNT 9.5 10^3/uL (4.3-11.0)
[2021-07-25] MEDS: inSUlin ASPART (NovoLOG) 1 UNIT/0.01 ML (CHARGE PER UNIT) SC SCH ×4 (06:05→20:59)
[2021-07-25 06:15] LABS: POTASSIUM 4.7 MMOL/L (3.6-5.0)
[2021-07-25 06:16] LABS: CALCIUM 9.6 MG/DL (8.5-10.1)
[2021-07-25 06:21] LABS: CREATININE SERUM 1.55 MG/DL (0.60-1.30)
[2021-07-25 07:30] VITALS: BP 131/79
[2021-07-25] MEDS ORDERED: LACT1CAP62 PO (08:02)
[2021-07-25] MEDS ORDERED: ASPI-999 PO (08:02)
[2021-07-25] MEDS ORDERED: GLIP10TA13 PO (08:02)
[2021-07-25] MEDS ORDERED: DICY20TA PO (08:02)
[2021-07-25] MEDS ORDERED: D5 1/2 NS W/KCL 20 MEQ/L 1,000 ML IV SCH (08:15)
[2021-07-25 11:29] VITALS: BP 144/69
[2021-07-25 12:05] LABS: BILIRUBIN,URINE NEGATIVE (NEGATIVE); CLARITY,URINE CLEAR; COLOR,URINE YELLOW; GLUCOSE, URINE (UA) NEGATIVE (NEGATIVE); KETONES,URINE NEGATIVE (NEGATIVE); LEUKOCYTE ESTERASE ,URINE 1+ (NEGATIVE); NITRITE,URINE NEGATIVE (NEGATIVE); PROTEIN,URINE NEGATIVE (NEGATIVE)
[2021-07-25 12:15] LABS: BACTERIA,URINE NEGATIVE /HPF; RENAL EPITHELIAL CELLS,URINE 0-2 /HPF
[2021-07-25] MEDS ORDERED: ACETAMINOPHEN 325 MG TABLET PO PRN (12:45)
[2021-07-25] MEDS ORDERED: ONDANSETRON 4 MG (ZOFRAN) ORAL DISSOLVE TAB PO PRN (12:45)
[2021-07-25] MEDS ORDERED: ONDANSETRON 4 MG/2 ML (SDV) Z0FRAN IV PRN (12:45)
[2021-07-25] MEDS ORDERED: ANTACID SUSP 30 ML UDC (MYLANTA) PO PRN (12:45)
[2021-07-25] MEDS: ENOXAPARIN 30 MG/0.3 ML (LOVENOX) SYR SC SCH (13:56)
[2021-07-25 16:37] VITALS: BP 116/56
--- NOTE | 2021-07-25 16:41 | History & Physical-Hospitalist ---
History of Present Illness HPI/Chief Complaint Shelley Alexandre is an 86 year old female with PMH HTN, HLD, T2DM, hypothyroidism, chronic diarrhea, who presented with confusion. Her daughters are present and help with the history. She has issues with chronic diarrhea which has been worse over the past week. She reports that it started after her COVID booster. She denies blood in her stools. She has not been having nausea or vomiting. She denies abdominal pain. She has been able to eat and drink without issue. She was with her family yesterday morning when she became more confused and was not answering questions appropriately. She does use insulin. They noticed that her blood sugar was around 70 yesterday morning. They did not check it during the event. Source: patient, family Exam Limitations: no limitations Date Seen 07/25/21 Time Seen by a Provider: 11:10 Attending Physician Rosemarie Sarabia MD PCP Cassidy Andrade MD Referring Physician Date of Admission Jul 25, 2021 at 03:35 Home Medications & Allergies Home Medications Reviewed patient Home Medication Reconciliation performed by pharmacy medication reconciliations electronics technician and/or nursing. Patients Allergies have been reviewed. Allergies Allergies Coded Allergies No Known Drug Allergies (Unverified07/03/20) Past Igbmnox-Esccgo-Aqfxzu Hx Patient Social History Tobacco Use?: No Smoking Status: Former Smoker Use of E-Cig and/or Vaping dev: No Substance use?: No Alcohol Use?: No Pt feels they are or have been: No Immunizations Up To Date Date of Influenza Vaccine: Mar 01, 2021 First/Initial COVID19 Vaccinat: 08-09 Second COVID19 Vaccination [place]: 09-06 Seasonal Allergies Seasonal Allergies: No Current Status status: No status: No Advance Directives: Yes Advance Directive Location: Family to bring in copy Communicates: Verbally Primary Language: Ethiopian Preferred Spoken Language: Ethiopian Is interpretation needed?: No Sensory deficits: Vision impairment Implanted or Applied Medical D: Stents Past Medical History Surgeries: CABG Coronary Artery Disease, Heart Attack Diabetes, Insulin dep Family Medical History No Pertinent Family Hx Review of Systems Constitutional: no symptoms reported EENTM: no symptoms reported Respiratory: no symptoms reported Cardiovascular: no symptoms reported Gastrointestinal: diarrhea Genitourinary: no symptoms reported Musculoskeletal: no symptoms reported Skin: no symptoms reported Psychiatric/Neurological: See HPI Physical Exam Physical Exam Vital Signs Vital Signs - First Documented 07/24/21 21:57 Temp 35.5 Pulse 71 Resp 16 B/P (MAP) 103/54 (70) Pulse Ox 97 O2 Delivery Simple Mask Capillary Refill : Height, Weight, BMI Height: '" Weight: lbs. oz. kg; 26.70 BMI Method: General Appearance: No Apparent Distress, WD/WN HEENT: PERRL/EOMI, Pharynx Normal Neck: Normal Inspection, Supple Respiratory: Lungs Clear, Normal Breath Sounds, No Respiratory Distress Cardiovascular: Regular Rate, Rhythm, No Edema, No Murmur Gastrointestinal: Normal Bowel Sounds, Non Tender, Soft Extremity: Normal Inspection, No Pedal Edema Neurologic/Psychiatric: Alert, Oriented x3 Skin: Normal Color, Warm/Dry Results Results/Procedures Labs Laboratory Tests 07/24/21 21:44 07/25/21 05:41 Patient resulted labs reviewed. Imaging: Reviewed Imaging Report Assessment/Plan Admission Diagnosis Acute kidney injury Admission Status: Inpatient Order (span 2 midnights) Reason for Inpatient Admission: IV fluids Assessment and Plan ETTA Dehydration Diarrhea Hyponatremia Renal function improving Continue IV fluids Imodium and Dicyclomine C diff negative [place] diet Confusion T2DM with hypoglycemia CT unremarkable Possibly related to hypoglycemia Hold scheduled insulin and sulfonylurea Hold metformin Sliding scale insulin HTN Continue lisinopril and metoprolol Hypothyroidism Continue levothyroxine DVT prophylaxis: Lovenox Diagnosis/Problems Diagnosis/Problems (1) ETTA (acute kidney injury) Status: Acute (2) Hyponatremia Status: Acute (3) Diarrhea Status: Acute Qualifiers: Diarrhea type: unspecified type Qualified Codes: R19.7 - Diarrhea, un specified (4) Confusion Status: Acute (5) T2DM (type 2 diabetes mellitus) Status: Acute Qualifiers: Diabetes mellitus intermediate teacher insulin use: with shelter use Diabetes mellitus complication status: with hypoglycemia Diabetes mellitus complication detail: without coma Qualified Codes: E11.649 - Type 2 diabetes mellitus with hypoglycemia without coma; Z79.4 - long term care social worker (current) use of insulin (6) HTN (hypertension) Status: Chronic Qualifiers: Hypertension type: primary hypertension Qualified Codes: I10 - Essential (primary) hypertension (7) Hypothyroidism Status: Chronic ROSEMARIE SARABIA MD Jul 25, 2021 16:41
[2021-07-25] MEDS: NS IV 1000 ML 1,000 ML IV SCH (17:12)
[2021-07-25] MEDS: meTOprolol TARTRATE 25 MG (LOPRESSOR) TABLET PO SCH (20:15)
[2021-07-25] MEDS: DICYCLOMINE 10 MG (BENTYL) CAP PO SCH (20:15)
[2021-07-25 20:47] VITALS: BP 158/77
[2021-07-25] MEDS: LOPERAMIDE 2 MG (IMODIUM) TABLET PO PRN (21:06)
[2021-07-26] VITALS: BP 144/77
[2021-07-26] MEDS: NS IV 1000 ML 1,000 ML IV SCH ×3 (03:07→22:32)
[2021-07-26 04:00] VITALS: BP 168/76
[2021-07-26] MEDS: LEVOTHYROXINE 50 MCG (LEVOTHROID) TAB PO SCH (05:41)
[2021-07-26] MEDS: DICYCLOMINE 10 MG (BENTYL) CAP PO SCH ×4 (05:41→20:23)
[2021-07-26] MEDS: inSUlin ASPART (NovoLOG) 1 UNIT/0.01 ML (CHARGE PER UNIT) SC SCH ×4 (05:41→20:55)
[2021-07-26 06:46] LABS: POTASSIUM 5.2 MMOL/L (3.6-5.0)
[2021-07-26 06:47] LABS: CALCIUM 9.6 MG/DL (8.5-10.1)
[2021-07-26 06:52] LABS: CREATININE SERUM 1.47 MG/DL (0.60-1.30)
[2021-07-26 08:00] VITALS: BP 132/70
[2021-07-26] MEDS: lisINopril 20 MG (PRINIVIL) TABLET PO SCH (08:32)
[2021-07-26] MEDS: meTOprolol TARTRATE 50 MG (LOPRESSOR) TAB PO SCH (08:32)
[2021-07-26] MEDS: cefTRIAXone 1 GM PRE-MIX 50 ML IV SCH (11:37)
[2021-07-26] MEDS: SODIUM BICARBONATE 650 MG TABLET (NON-FORMULARY) PO SCH ×3 (11:37→20:23)
--- NOTE | 2021-07-26 11:43 | Occupational Therapy Eval ---
OT Evaluation-General/PLF Medical Diagnosis Admission Date Jul 25, 2021 at 03:35 Medical Diagnosis: ETTA, hyponatremia, AMS Onset Date: Jul 23, 2021 Therapy Diagnosis Therapy Diagnosis: decreased ADL staus Precautions Precautions/Isolations: Standard Precautions Referral Physician: Manny Pruitt Reason: Evaluation/Treatment Medical History Pertinent Medical History: CABG, CAD, DM, HTN, Hypothroidism, [place] Current History Presents with confusion Social History Home: Single Level Current Living Status: Children (daughter) ADL-Prior Level of Function SCALE: Activities may be completed with or without assistive devices. 5-Spvpofwnvr-djvjgbo completes the activity by him/herself with no assistance from a helper. 5-Set-up or Clean-up Assistance-helper sets up or cleans up; patient completes activity. [place] assists only prior to or following the activity. 4-Supervision or Touching Assistance-helper provides verbal cues and/or touching/steadying and/or contact guard assistance as patient completes activity. Assistance may be provided throughout the activity or intermittently. 3-Partial/Moderate Assistance-helper does LESS THAN HALF the effort. [place] lifts, holds or supports trunk or limbs, but provides less than half the effort. 2-Substantial/Maximal Assistance-helper does MORE THAN HALF the effort. [place] lifts or holds trunk or limbs and provides more than half the effort. 2-Gayjsasvy-ejihkf does ALL the effort. Patient does none of the effort to complete the activity. Or, the assistance of 2 or more helpers is required for the patient to complete the activity. If activity was not attempted, code reason: 7-Patient Refused. 9-Not Applicable-not attempted and the patient did not perform the activity before the current illness, exacerbation or injury. 10-Not Attempted due to Environmental Limitations-(lack of equipment, weather restraints, etc.). 88-Not Attempted due to Medical Conditions or Safety Concerns. ADL PLOF Comments Pt's daughter indicates pt is typically independent with ADLs and functional mobility without AD. Pt's confusion has worsened over the last year. Self Care: Independent Functional Cognition: Needed Some Help DME/Equipment: Tub/Shower OT Current Status Subjective Pt in bed, hallucinations throughout session. Pt believed there were children in her window, and people behind her that she was leading in a choir. Per daughter's report, pt had a conversation with her dad and mom. Mental Status/Objective Patient Orientation: Person, Confused Attachments: IV Current Upper Extremity ROM WFL Upper Extremity Coordination WFL Upper Extremity Strength grossly 3/5 ADL-Treatment Eating (QC): 5 (Per daughter report, assist to cut food and open containers.) Oral Hygiene (QC): 4 (SBA with oral care seated EOB. Assist to turn on electric toothbrush and verbal cues throughout task.) Other Treatments Pt in bed, attempted to get this therapist to join the choir she was leading throughout tx. Pt able to be redirected throughout session with moderate verbal cues. Pt transferred supine to sit EOB, min A. Pt completed oral care and hair brushing, cues for redirection. Pt stood at FWW, CGA, then able to take a few side steps towards HOB. Pt sat EOB, then transferred supine, CGA. Post tx, pt in bed, call light in reach and all needs met, bed alarm activated. Daughter present. Education OT Patient Education: Correct positioning, Energy conservation, Modified ADL techniques, Progress toward Goal/Update tx plan, Purpose of tx/functional activities Teaching Recipient: Patient Teaching Methods: Discussion Response to Teaching: Verbalize Understanding OT Bottom Turning Lathe Tender Goals Bottom Turning Lathe Tender Goals Time Frame: Aug 06, 2021 Eating (QC): 6 Oral Hygiene (QC): 5 Toileting Hygiene (QC): 4 Shower/Bathe Self (QC): 4 Upper Body Dressing (QC): 5 Lower Body Dressing (QC): 4 On/Off Footwear (QC): 4 Additional Goals: 1-Demonstrate ADL Tasks, 2-Verbalize Understanding, 3- ImproveStrength/Shea 1=Demonstrate adherence to instructed precautions during ADL tasks. 2=Patient will verbalize/demonstrate understanding of assistive devices/modifications for ADL. 3=Patient will improve strength/tolerance for activity to enable patient to perform ADL's. OT Education/Plan Problem List/Assessment Assessment: Decreased Activ Tolerance, Decreased Safety Aware, Decreased UE Strength, Impaired Cognition, Impaired Funct Balance, Impaired I ADL's, Impaired Self-Care Skills Discharge Recommendations Plan/Recommendations: Continue POC Treatment Plan/Plan of Care Patient would benefit from OT for education, treatment and training to promote independence in ADL's, mobility, safety and/or upper extremity function for ADL's. Plan of Care: ADL Retraining, Functional Mobility, UE Funct Exercise/Act Treatment Duration: Aug 06, 2021 Frequency: 3 times per week (3-5 times per week) Estimated Hrs Per Day: .25 hour per day Agreement: Yes Rehab Potential: Guarded Time/GCodes Start Time: 10:55 Stop Time: 11:12 Total Time Billed (hr/min): 17 Billed Treatment Time 1, J LUIS BACH OT Jul 26, 2021 11:43
--- NOTE | 2021-07-26 11:48 | Physical Therapy Evaluation ---
PT Evaluation-General Medical Diagnosis Admission Date Jul 25, 2021 at 03:35 Medical Diagnosis: Altered Mental State Onset Date: Jul 24, 2021 Therapy Diagnosis Therapy Diagnosis: Weakness, debility Precautions Precautions/Isolations: Fall Prevention, Standard Precautions Referral Physician: Manny Reason for Referral: Evaluation/Treatment Medical History Pertinent Medical History: CABG, CAD, DM, [place] Additional Medical History Valve Replacement Current History Patient presented to ED via family after worsening of altered mental state. Reviewed History: Yes Social History Home: Single Level Current Living Status: Other Family Entry Into Home: Stairs With Railing PT Steps Into Home: 2 Patient does not leave the house very often Prior Prior Level of Function SCALE: Activities may be completed with or without assistive devices. 3-Gczkzuyvgo-rkmcdeq completes the activity by him/herself with no assistance from a helper. 5-Set-up or Clean-up Assistance-helper sets up or cleans up; patient completes activity. [place] assists only prior to or following the activity. 4-Supervision or Touching Assistance-helper provides verbal cues and/or touching/steadying and/or contact guard assistance as patient completes activity. Assistance may be provided throughout the activity or intermittently. 3-Partial/Moderate Assistance-helper does LESS THAN HALF the effort. [place] lifts, holds or supports trunk or limbs, but provides less than half the effort. 2-Substantial/Maximal Assistance-helper does MORE THAN HALF the effort. [place] lifts or holds trunk or limbs and provides more than half the effort. 0-Ifknkgfnf-oefplx does ALL the effort. Patient does none of the effort to complete the activity. Or, the assistance of 2 or more helpers is required for the patient to complete the activity. If activity was not attempted, code reason: 7-Patient Refused. 9-Not Applicable-not attempted and the patient did not perform the activity before the current illness, exacerbation or injury. 10-Not Attempted due to Environmental Limitations-(lack of equipment, weather restraints, etc.). 88-Not Attempted due to Medical Conditions or Safety Concerns. Bed Mobility: 6 Transfers (B,C,W/C): 6 Gait: 6 Indoor Mobility (Ambulation): Independent Stairs: Needed Some Help PT Evaluation-Current Subjective Patient presented in bed with her daughter at bedside. Objective Patient Orientation: Confused ROM/Strength ROM Lower Extremities WFL Strength Lower Extremities 4/5 bilateral grossly Integumentary/Posture Bladder Incontinence: Snyder Cath Neuromuscular (Tone, Coordination, Reflexes) Coordination is diminished Sensory Vision: Functional Hearing: Functional Transfers Lying to Sitting/Side of Bed(Q: 3 Sit to Stand (QC): 3 Chair/Rlh-rn-Ftoua Xfer(QC): 3 Gait Does the Patient Walk?: Yes Mode of Locomotion: Walk Walk 10 feet (QC): 3 Walk 50 ft with 2 Turns(QC): 3 Walk 150 ft (QC): 3 Distance: 250' Gait Assistive Device: Handheld Assist Comments/Gait Description Patient ambulated for 250' with hand held assist and gait belt. Patient required min assist due to lack of coordination with walking. Ambulation with FWW was attempted but patient confusion made this device unsafe. Balance Sitting Static: Normal Sitting Dynamic: Normal Standing Static: Normal Standing Dynamic: Fair Assessment/Needs Patient performed bed mobility and ambulated with physical therapy. Patient was very confused but ambulated with min assist and hand held direction. Patient coordination was diminished. Patient daughter is with her in the room and is trying to keep her occupied. Patient requires physical therapy to return to [facility]. Rehab Potential: Fair PT Assisted Goals Assisted Goals PT Websphere Commerce Architect Goals Time Frame: Aug 07, 2021 Roll Left & Right (QC): 6 Sit to Lying (QC): 6 Lying-Sitting on Side/Bed(QC): 6 Sit to Stand (QC): 6 Chair/Lyp-lr-Owmvh Xfer(QC): 6 Toilet Transfer (QC): 6 Does the Patient Walk: Yes Walk 10 feet (QC): 6 Walk 50ft with 2 Turns (QC): 6 Walk 150 ft (QC): 6 PT Plan Problem List Problem List: Activity Tolerance, Functional Strength, Safety, Balance, Gait, Transfer, Bed Mobility, ROM Treatment/Plan Treatment Plan: Continue Plan of Care Treatment Plan: Bed Mobility, Education, Functional Activity Shea, Functional Strength, Gait, Safety, Therapeutic Exercise, Transfers Treatment Duration: Aug 07, 2021 Frequency: 6 times per week Estimated Hrs Per Day: .25 hour per day Time/GCodes Time In: 1112 Time Out: 1126 Total Billed Treatment Time: 14 Total Billed Treatment 1 Visit EVMod 14 min DILLON MCKEON PT Jul 26, 2021 11:48
[2021-07-26 12:00] VITALS: BP 137/99
--- NOTE | 2021-07-26 12:01 | Progress Note - Hospitalist ---
MARCUS SNIDERVANI U 07/26/21 1201: Subjective HPI/CC On Admission Shelley Alexandre is an 86 year old female with PMH HTN, HLD, T2DM, hypothyroidism, chronic diarrhea, who presented with confusion. Her daughters are present and help with the history. She has issues with chronic diarrhea which has been worse over the past week. She reports that it started after her COVID booster. She denies blood in her stools. She has not been having nausea or vomiting. She denies abdominal pain. She has been able to eat and drink without issue. She was with her family yesterday morning when she became more confused and was not answering questions appropriately. She does use insulin. They noticed that her blood sugar was around 70 yesterday morning. They did not check it during the event. Subjective/Events-last exam Patient is still confused this morning but is getting better according to daughter. She is more confused in the mornings. She has been able to eat meals and have bowel movements although is still complaining of diarrhea. Daughter expressed needing help at home and requested home health and or social work to come and talk to her. Review of Systems General: No Chills, No Night Sweats HEENT: No Head Aches, No Visual Changes, No Sore Throat Pulmonary: No Dyspnea, No Cough Cardiovascular: No: Chest Pain, Palpitations Gastrointestinal: No: Nausea, Vomiting, Abdominal Pain, Diarrhea, Constipation Genitourinary: No Dysuria, No Frequency, No Incontinence Musculoskeletal: No: other, neck pain, shoulder pain, arm pain, back pain, hand pain, leg pain, foot pain Neurological: Confusion; No: Numbness, Change in speech Objective Exam Vital Signs Vital Signs Date Time Temp Pulse Resp B/P (MAP) Pulse Ox O2 Delivery O2 Flow Rate FiO2 07/26/21 08:00 36.0 78 20 132/70 (90) 94 Room Air Capillary Refill : General Appearance: No Apparent Distress HEENT: PERRL/EOMI Neck: Full Range of Motion, Normal Inspection, Non Tender Respiratory: Chest Non Tender, Normal Breath Sounds, No Accessory Muscle Use Cardiovascular: Regular Rate, Rhythm, No Gallop, No Murmur Gastrointestinal: Normal Bowel Sounds, Non Tender, Soft Back: Normal Inspection Extremity: Normal Inspection Neurologic/Psychiatric: Alert, Disoriented Skin: Normal Color, Warm/Dry Results/Procedures Lab Laboratory Tests 07/26/21 06:20 Patient resulted labs reviewed. Imaging: Reviewed Imaging Report Assessment/Plan Assessment and Plan Assess & Plan/Chief Complaint Delerium 2/ UTI - CT head unremarkable - UA: pos leuk, wbcs - urine cx showed gram (-) rods - will start on rocephin ETTA - prerenal 2/2 dehydration/diarrhea - C.diff negative - maintanence IVF NS - start bicarb today - imdium, dicyclomine Hyperkalemia - likely d/t etta - on insulin - starting bicarb today - will monitor closely T2DM - SSI - hold home meds for now HTN - lisinopril - metoprolol tartrate Hypothryoidism - TSH wnl - synthroid Debility - start PT/OT today - social work to talk to daughter DVT ppx: lachelleSAIMA Farmer DO 07/27/21 0520: Subjective HPI/CC On Admission Date Seen by Provider: Jul 26, 2021 Time Seen by Provider: 10:00 Subjective/Events-last exam Pt goes by Phoebe Barfield on chronic diarrhea reported Creatinine and sodium level improving UTI being treated with Rocephin that I ordered Acute kidney injury improving Social work consult for possible skilled care at discharge Daughter at the bedside Review of Systems General: Fatigue Pulmonary: Dyspnea Objective Exam General Appearance: No Apparent Distress, WD/WN, Chronically ill Respiratory: Lungs Clear Cardiovascular: Regular Rate, Rhythm Neurologic/Psychiatric: Alert, Depressed Affect, Disoriented Assessment/Plan Assessment and Plan Assess & Plan/Chief Complaint UTI treatment Fluid restriction Salt tablets Supportive care Supervisory-Addendum Brief Verification & Attestation Participated in pt care: history, MDM, physical Personally performed: exam, history, MDM, supervision of care Care discussed with: Medical Student Procedures: n/a Results interpretation: Verified all documentation Verification and Attestation of Medical Student E/M Service A medical student performed and documented this service in my presence. I reviewed and verified all information documented by the medical student and made modifications to such information, when appropriate. I personally performed the physical exam and medical decision making. Saima Ruiz, Jul 27, 2021,05:20 ANGIE SNIDER Jul 26, 2021 12:01 SAIMA RUIZ DO Jul 27, 2021 05:20
--- NOTE | 2021-07-26 12:48 | ST Cognitive Linguistic Eval ---
Speech Evaluation-General Medical Diagnosis Altered Mental State Onset Date: Jul 24, 2021 Therapy Diagnosis Therapy Diagnosis: Severe Cognitive Lingusitic Impairment Precautions Precautions: Fall Precautions/Isolations: Standard Precautions Referral Referring Physician: Dr. Saima Bryant Reason for Referral: Evaluation/Treatment Medical History Pertinent Medical History: CABG, CAD, DM, [place] Current History The patient is an 86 year-old female with a past medical history of HTN, HLD, T2DM, hypothyroidism, and chronic diarrhea, who presented to [facility] with confusion. Head CT: 07/24/21: No acute intracranial process. Reviewed History: Yes Social History Current Living Status: Other Family Speech PLF-Current Status Subjective The patient was seated upright in her recliner, awake and alert upon entrance to her room by the clinician. The patient's daughter is present at bedside. The patient greeted the clinician appropriately and was agreeable to participation in the cognitive linguistic evaluation. The patient's lunch tray was present and she continued to consume lunch throughout the assessment. The patient had iced tea, chicken pot pie, and green beans. Overt s/s of suspected aspiration were not demonstrated. Language Eval: Auditory Comprehends Simple Yes/No Ques: Functional Indent/Objects Multiple Diallo: Functional Follows 1-Step Commands: Functional (With repetition.) Follows General Conversations: Moderate Language Eval: Verbal Language Completes Spontaneous Greeting: Functional Produces Auto, Serial Info: Functional Imitates Simple Words/Phrases: Functional Word Finding: Severe Requests Basic Needs: Moderate States Basic Personal Info: Functional Expresses Complex Ideas: Moderate Cognitive Patient Orientation The patient was oriented to month, only. The patient was unable to identify the accurate day of the week, date, or year. Following orientation questions, the clinician directed the patient to the in-room white board for orientation information. Objective Cognitive Domain Attention: Mild (Verbal redirection was required, intermittently, throughout questions.) Memory: Severe Problem Solving: Severe Executive Functions: Severe Composite Severity Rating: Severe Objective Formal/Standardized Tests [facility] Mental Status ([facility]) Results The patient displayed a result of +4/30 on the SLUMS correlating to a score of "dementia" per SLUMS. Oral Motor/Speech Production The patient does not display dysarthria or apraxia of speech. The patient remains 100% intelligible in known and unknown contexts. Impression The patient demonstrates a suspected severe cognitive linguistic deficit in the areas of attention, memory, and executive functioning. The patient appears with confusion at this time. Speech Short Term Goals Short Term Goals Short Term Goals 1. The patient will display 90% accuracy with recall of functional memory strategies (external and internal) with mild clinician verbal cueing. Speech Ambulatory Analyst Goals Ambulatory Analyst Goals 1. The patient will display increased cognitive linguistic function for a safe return to the least restrictive environment. Speech-Plan Treatment Plan Speech Therapy Treatment Plan: Continue Plan of Care Treatment Duration: Aug 02, 2021 Frequency: 2 times per week Estimated Hrs Per Day: .25 hour per day Rehab Potential: Guarded Barriers to Learning: The patient's current level of confusion. Safety Risks/Education Teaching Recipient: Patient, Family Teaching Methods: Discussion Response to Teaching: Reinforcement Needed Education Topics Provided: GREGG results, Plan of Care Time Speech Therapy Time In: 11:56 Speech Therapy Time Out: 12:25 Total Billed Time: 29 Billed Treatment Time 1, DANIA SPANGLER [facility] Jul 26, 2021 12:48
[2021-07-26] MEDS: ENOXAPARIN 30 MG/0.3 ML (LOVENOX) SYR SC SCH (12:58)
[2021-07-26] MEDS ORDERED: INSU100I29 SQ (13:25)
[2021-07-26] MEDS ORDERED: CALC625T29 PO (13:25)
[2021-07-26] MEDS ORDERED: UBID100C17 PO (13:25)
[2021-07-26] MEDS ORDERED: METO50TA15 PO (13:25)
[2021-07-26] MEDS ORDERED: GLIP10TA24 PO (13:25)
[2021-07-26 16:29] VITALS: BP 161/82
[2021-07-26 20:00] VITALS: BP 165/102
[2021-07-26] MEDS: meTOprolol TARTRATE 25 MG (LOPRESSOR) TABLET PO SCH (20:22)
[2021-07-26] MEDS: MELATONIN 3 MG TABLET PO PRN (20:22)
[2021-07-26] MEDS: LOPERAMIDE 2 MG (IMODIUM) TABLET PO PRN (23:57)
[2021-07-27 00:12] VITALS: BP 153/77
[2021-07-27 06:36] LABS: BASOPHILS % (AUTO) 0 % (0-10); EOSINOPHILS # (AUTO) 0.5 10^3/uL (0.0-0.3); EOSINOPHILS % (AUTO) 5 % (0-10); HEMATOCRIT 36 % (35-52); HEMOGLOBIN 11.8 g/dL (11.5-16.0); LYMPHOCYTES # (AUTO) 1.6 10^3/uL (1.0-4.0); LYMPHOCYTES % (AUTO) 16 % (12-44); MEAN CORPUSCULAR HEMOGLOBIN 28 pg (25-34); MEAN CORPUSCULAR HGB CONC 33 g/dL (32-36); MEAN CORPUSCULAR VOLUME 84 fL (80-99); MEAN PLATELET VOLUME 10.2 fL (9.0-12.2); MONOCYTES # (AUTO) 1.1 10^3/uL (0.0-1.0); MONOCYTES % (AUTO) 11 % (0-12); NEUTROPHILS # (AUTO) 6.6 10^3/uL (1.8-7.8); NEUTROPHILS % (AUTO) 67 % (42-75); PLATELET COUNT 250 10^3/uL (130-400); WHITE BLOOD COUNT 9.8 10^3/uL (4.3-11.0)
[2021-07-27 06:44] LABS: ALBUMIN 3.7 GM/DL (3.2-4.5)
[2021-07-27 06:45] LABS: POTASSIUM 4.9 MMOL/L (3.6-5.0)
[2021-07-27 06:46] LABS: CALCIUM 9.3 MG/DL (8.5-10.1)
[2021-07-27 06:47] LABS: TOTAL PROTEIN 6.8 GM/DL (6.4-8.2)
[2021-07-27 06:49] LABS: BILIRUBIN,TOTAL 0.4 MG/DL (0.1-1.0)
[2021-07-27 06:50] LABS: CREATININE SERUM 1.19 MG/DL (0.60-1.30)
[2021-07-27] MEDS: DICYCLOMINE 10 MG (BENTYL) CAP PO SCH ×4 (06:55→20:11)
[2021-07-27] MEDS: LEVOTHYROXINE 50 MCG (LEVOTHROID) TAB PO SCH (06:55)
[2021-07-27] MEDS: inSUlin ASPART (NovoLOG) 1 UNIT/0.01 ML (CHARGE PER UNIT) SC SCH ×4 (06:58→20:12)
[2021-07-27 08:05] VITALS: BP 121/76
[2021-07-27] MEDS: cefTRIAXone 1 GM PRE-MIX 50 ML IV SCH (08:20)
[2021-07-27] MEDS: SODIUM BICARBONATE 650 MG TABLET (NON-FORMULARY) PO SCH ×3 (09:02→20:11)
[2021-07-27] MEDS: LOPERAMIDE 2 MG (IMODIUM) TABLET PO PRN (09:02)
[2021-07-27] MEDS: meTOprolol TARTRATE 50 MG (LOPRESSOR) TAB PO SCH (09:02)
[2021-07-27] MEDS: lisINopril 20 MG (PRINIVIL) TABLET PO SCH (09:02)
[2021-07-27] MEDS: NS IV 1000 ML 1,000 ML IV SCH (09:02)
--- NOTE | 2021-07-27 09:28 | Occupational Ther Daily Note ---
OT Current Status-Daily Note Subjective Pt in bed. Pt's daughter present in room. Pt agreeable to OT tx. Mental Status/Objective Patient Orientation: Person, Confused Attachments: IV ADL-Treatment Therapy Code Descriptions/Definitions Functional [place] Measure: 0=Not Assessed/NA 4=Minimal Assistance 1=Total Assistance 5=Supervision or Setup 2=Maximal Assistance 6=Modified [place] 3=Moderate Assistance 7=Complete IndependenceSCALE: Activities may be completed with or without assistive devices. 7-Yzsaijsiow-xsuhfsr completes the activity by him/herself with no assistance from a helper. 5-Set-up or Clean-up Assistance-helper sets up or cleans up; patient completes activity. [place] assists only prior to or following the activity. 4-Supervision or Touching Assistance-helper provides verbal cues and/or touching/steadying and/or contact guard assistance as patient completes activity. Assistance may be provided throughout the activity or intermittently. 3-Partial/Moderate Assistance-helper does LESS THAN HALF the effort. [place] lifts, holds or supports trunk or limbs, but provides less than half the effort. 2-Substantial/Maximal Assistance-helper does MORE THAN HALF the effort. [place] lifts or holds trunk or limbs and provides more than half the effort. 0-Mvristbjw-gtnsnh does ALL the effort. Patient does none of the effort to complete the activity. Or, the assistance of 2 or more helpers is required for the patient to complete the activity. If activity was not attempted, code reason: 7-Patient Refused. 9-Not Applicable-not attempted and the patient did not perform the activity before the current illness, exacerbation or injury. 10-Not Attempted due to Environmental Limitations-(lack of equipment, weather restraints, etc.). 88-Not Attempted due to Medical Conditions or Safety Concerns. Eating (QC): 5 (setup) Lower Body Dressing (QC): 3 (Min A with threading RLE) Toileting Hygiene (QC): 3 (Min A with standing balance. Pt able to complete hygiene and pant hike.) Toilet Transfer (QC): 3 (Min A sit to stand to from BSC) Other Treatment Pt sitting in bed. Pt transitioned EOB, mod verbal cues needed for sequence to get EOB. Pt transitioned to FWW from EOB, min A. Pt transitioned to BSC, she sto od and doffed her briefs before sitting, min A needed to thread over RLE. Pt completed toileting. Pt donned a new brief, then transitioned to FWW. Pt became unsteady while standing, leaning backwards, min assistance needed. Pt completed functional mobility to recliner, FWW, CGA. Pt in recliner, call light in reach, breakfast tray in front of her and all needs met. Education OT Patient Education: Correct positioning, Energy conservation, Modified ADL techniques, Progress toward Goal/Update tx plan, Purpose of tx/functional activities Teaching Recipient: Patient, Family Teaching Methods: Demonstration, Discussion Response to Teaching: Verbalize Understanding, Return Demonstration, Reinforcement Needed OT Trade Facilitator Goals Skilled Nursing Goals Time Frame: Aug 06, 2021 Eating (QC): 6 Oral Hygiene (QC): 5 Toileting Hygiene (QC): 4 Shower/Bathe Self (QC): 4 Upper Body Dressing (QC): 5 Lower Body Dressing (QC): 4 On/Off Footwear (QC): 4 Additional Goals: 1-Demonstrate ADL Tasks, 2-Verbalize Understanding, 3- ImproveStrength/Shea 1=Demonstrate adherence to instructed precautions during ADL tasks. 2=Patient will verbalize/demonstrate understanding of assistive devices/modifications for ADL. 3=Patient will improve strength/tolerance for activity to enable patient to perform ADL's. OT Education/Plan Problem List/Assessment Assessment: Decreased Activ Tolerance, Impaired Coordination, Impaired Funct Balance, Impaired I ADL's, Impaired Self-Care Skills Discharge Recommendations Plan/Recommendations: Continue POC Treatment Plan/Plan of Care Patient would benefit from OT for education, treatment and training to promote independence in ADL's, mobility, safety and/or upper extremity function for ADL's. Plan of Care: ADL Retraining, Functional Mobility, UE Funct Exercise/Act Treatment Duration: Aug 06, 2021 Frequency: 3 times per week (3-5 times per week) Estimated Hrs Per Day: .25 hour per day Agreement: Yes Rehab Potential: Fair Time/GCodes Start Time: 09:00 Stop Time: 09:17 Total Time Billed (hr/min): 17 Billed Treatment Time 1, ADL (17) J LUIS BOSCH OT Jul 27, 2021 09:28
--- NOTE | 2021-07-27 10:31 | Physical Therapy Daily Note ---
PT Daily Note-Current Subjective Patient presented sitting up in her chair with daughter next to her. Patient agrees to walk with physical therapy. Mental Status Patient Orientation: Person, Confused Attachments: IV Transfers SCALE: Activities may be completed with or without assistive devices. 0-Rpyexcpmry-sxkeewf completes the activity by him/herself with no assistance from a helper. 5-Set-up or Clean-up Assistance-helper sets up or cleans up; patient completes activity. [place] assists only prior to or following the activity. 4-Supervision or Touching Assistance-helper provides verbal cues and/or touching/steadying and/or contact guard assistance as patient completes activity. Assistance may be provided throughout the activity or intermittently. 3-Partial/Moderate Assistance-helper does LESS THAN HALF the effort. [place] lifts, holds or supports trunk or limbs, but provides less than half the effort. 2-Substantial/Maximal Assistance-helper does MORE THAN HALF the effort. [place] lifts or holds trunk or limbs and provides more than half the effort. 2-Jzejyacze-xgjxeq does ALL the effort. Patient does none of the effort to compl ete the activity. Or, the assistance of 2 or more helpers is required for the patient to complete the activity. If activity was not attempted, code reason: 7-Patient Refused. 9-Not Applicable-not attempted and the patient did not perform the activity before the current illness, exacerbation or injury. 10-Not Attempted due to Environmental Limitations-(lack of equipment, weather restraints, etc.). 88-Not Attempted due to Medical Conditions or Safety Concerns. Sit to Stand (QC): 4 Gait Training Does the Patient Walk?: Yes Distance: 250' Walk 10 feet (QC): 4 Walk 50 ft with 2 Turns(QC): 4 Walk 150 ft (QC): 4 Gait Assistive Device: FWW Patient ambulated with FWW and CGA. Patient required cues to not run into things with the walker while ambulating. Exercises Standing: Heel/toe raises, Marching Standing Reps: 10 Assessment Patient ambulated and performed standing exercises while holding onto the counter. Patient ambulated with FWW and CGA assistance and required cues to control the walker. Patient was still confused about her situation and did not understand why she had to use the walker. Patient safety with her confusion is the biggest problem currently. PT Usp Goals Usp Goals PT Lounge Car Attendant Goals Time Frame: Aug 07, 2021 Roll Left & Right (QC): 6 Sit to Lying (QC): 6 Lying-Sitting on Side/Bed(QC): 6 Sit to Stand (QC): 6 Chair/Fmn-hl-Dtamj Xfer(QC): 6 Toilet Transfer (QC): 6 Does the Patient Walk: Yes Walk 10 feet (QC): 6 Walk 50ft with 2 Turns (QC): 6 Walk 150 ft (QC): 6 PT Plan Problem List Problem List: Activity Tolerance, Functional Strength, Safety, Balance, Gait, Transfer, Bed Mobility, ROM Treatment/Plan Treatment Plan: Continue Plan of Care Treatment Plan: Bed Mobility, Education, Functional Activity Seha, Functional Strength, Gait, Safety, Therapeutic Exercise, Transfers Treatment Duration: Aug 07, 2021 Frequency: 6 times per week Estimated Hrs Per Day: .25 hour per day Safety Risks/Education Patient Education: Gait Training, Safety Issues Teaching Recipient: Patient, Family Teaching Methods: Discussion Time/GCodes Time In: 951 Time Out: 1005 Total Billed Treatment Time: 14 Total Billed Treatment 1 Visit FA 14 min DILLON MCKEON PT Jul 27, 2021 10:31
--- NOTE | 2021-07-27 11:06 | Progress Note - Hospitalist ---
ANGIE SNIDER U 07/27/21 1105: Subjective HPI/CC On Admission Date Seen by Provider: Jul 27, 2021 Time Seen by Provider: 10:00 Shelley Alexandre is an 86 year old female with PMH HTN, HLD, T2DM, hypothyroidism, chronic diarrhea, who presented with confusion. Her daughters are present and help with the history. She has issues with chronic diarrhea which has been worse over the past week. She reports that it started after her COVID booster. She denies blood in her stools. She has not been having nausea or vomiting. She denies abdominal pain. She has been able to eat and drink without issue. She was with her family yesterday morning when she became more confused and was not answering questions appropriately. She does use insulin. They noticed that her blood sugar was around 70 yesterday morning. They did not check it during the event. Subjective/Events-last exam Patient was asleep this morning with daughter from [facility] at bedside. Daughter mentioned that pt had'nt slept at all while at the hospital and just fell asleep early this morning. Lack of sleep may be contributing to her confusion. Per daughter she is still confused and not herself and understands that this may be delirium due to her UTI. We discussed talking to social work to get her set up with home health or a jail facility. Review of Systems General: No Chills HEENT: No Head Aches Pulmonary: No Dyspnea, No Cough Cardiovascular: No: Chest Pain, Palpitations Gastrointestinal: No: Nausea, Vomiting, Abdominal Pain, Diarrhea, Constipation Neurological: No: Numbness Objective Exam Vital Signs Vital Signs Date Time Temp Pulse Resp B/P (MAP) Pulse Ox O2 Delivery O2 Flow Rate FiO2 07/27/21 08:05 36.8 78 20 121/76 (91) 98 Room Air Capillary Refill : General Appearance: No Apparent Distress HEENT: TMs Normal, Normal ENT Inspection Neck: Full Range of Motion, Normal Inspection, Non Tender Respiratory: Chest Non Tender, Lungs Clear, Normal Breath Sounds, No Accessory Muscle Use Cardiovascular: Regular Rate, Rhythm, No Gallop, No Murmur Gastrointestinal: Normal Bowel Sounds, Non Tender, Soft Back: Normal Inspection Extremity: Normal Inspection, Normal Range of Motion Neurologic/Psychiatric: Disoriented Skin: Normal Color, Warm/Dry Results/Procedures Lab Laboratory Tests 07/27/21 06:09 Patient resulted labs reviewed. Imaging: Reviewed Imaging Report Assessment/Plan Assessment and Plan Assess & Plan/Chief Complaint Delerium 2/ UTI - CT head unremarkable - UA: pos leuk, wbcs - urine cx showed gram (-) rods - continue rocephin ETTA - prerenal 2/2 dehydration/diarrhea - C.diff negative - stop IV fluids today - started bicarb - imdium, dicyclomine Hyperkalemia - likely d/t etta - better today - on insulin - bicarb - monitor closely T2DM - SSI - hold home meds for now - will obtain HbA1c for byproducts pump operator assessment HTN - lisinopril - metoprolol tartrate Hypothryoidism - TSH wnl - synthroid Debility - continue PT/OT - social work to talk to daughter DVT ppx: lachelleSAIMA Farmer DO 07/28/21 0531: Supervisory-Addendum Brief Verification & Attestation Participated in pt care: history, MDM, physical Personally performed: exam, history, MDM, supervision of care Care discussed with: Medical Student Procedures: n/a Results interpretation: Verified all documentation Verification and Attestation of Medical Student E/M Service A medical student performed and documented this service in my presence. I reviewed and verified all information documented by the medical student and made modifications to such information, when appropriate. I personally performed the physical exam and medical decision making. Saima Ruiz, Jul 28, 2021,05:31 ANGIE SNIDER Jul 27, 2021 11:05 SAIMA RUIZ DO Jul 28, 2021 05:31
[2021-07-27] MEDS: ENOXAPARIN 30 MG/0.3 ML (LOVENOX) SYR SC SCH (13:54)
[2021-07-27 15:00] VITALS: BP 147/71
[2021-07-27] MEDS: meTOprolol TARTRATE 25 MG (LOPRESSOR) TABLET PO SCH (20:10)
[2021-07-27] MEDS: MELATONIN 3 MG TABLET PO PRN (20:11)
[2021-07-28 00:22] VITALS: BP 149/75
[2021-07-28] MEDS: LEVOTHYROXINE 50 MCG (LEVOTHROID) TAB PO SCH (06:25)
[2021-07-28] MEDS: DICYCLOMINE 10 MG (BENTYL) CAP PO SCH ×4 (06:25→20:38)
[2021-07-28] MEDS: inSUlin ASPART (NovoLOG) 1 UNIT/0.01 ML (CHARGE PER UNIT) SC SCH ×4 (06:25→20:38)
[2021-07-28 07:18] LABS: BASOPHILS # (AUTO) 0.1 10^3/uL (0.0-0.1); BASOPHILS % (AUTO) 1 % (0-10); EOSINOPHILS # (AUTO) 0.4 10^3/uL (0.0-0.3); EOSINOPHILS % (AUTO) 3 % (0-10); HEMATOCRIT 35 % (35-52); HEMOGLOBIN 11.5 g/dL (11.5-16.0); LYMPHOCYTES # (AUTO) 1.4 10^3/uL (1.0-4.0); LYMPHOCYTES % (AUTO) 13 % (12-44); MEAN CORPUSCULAR HEMOGLOBIN 27 pg (25-34); MEAN CORPUSCULAR HGB CONC 33 g/dL (32-36); MEAN CORPUSCULAR VOLUME 84 fL (80-99); MEAN PLATELET VOLUME 10.2 fL (9.0-12.2); MONOCYTES # (AUTO) 1.1 10^3/uL (0.0-1.0); MONOCYTES % (AUTO) 10 % (0-12); NEUTROPHILS % (AUTO) 73 % (42-75); PLATELET COUNT 235 10^3/uL (130-400); WHITE BLOOD COUNT 10.9 10^3/uL (4.3-11.0)
[2021-07-28 07:36] LABS: ALBUMIN 3.6 GM/DL (3.2-4.5); BILIRUBIN,TOTAL 0.5 MG/DL (0.1-1.0); CALCIUM 9.4 MG/DL (8.5-10.1); CREATININE SERUM 1.44 MG/DL (0.60-1.30); POTASSIUM 4.8 MMOL/L (3.6-5.0)
[2021-07-28 08:00] VITALS: BP 165/82
[2021-07-28] MEDS: cefTRIAXone 1 GM PRE-MIX 50 ML IV SCH (08:42)
[2021-07-28] MEDS: SODIUM BICARBONATE 650 MG TABLET (NON-FORMULARY) PO SCH ×3 (08:42→20:38)
[2021-07-28] MEDS: lisINopril 20 MG (PRINIVIL) TABLET PO SCH (08:42)
[2021-07-28] MEDS: meTOprolol TARTRATE 50 MG (LOPRESSOR) TAB PO SCH (08:42)
--- NOTE | 2021-07-28 10:38 | Occupational Ther Daily Note ---
OT Current Status-Daily Note Subjective Pt in recliner. Pt's sister present in room. Pt agreeable to OT tx. Mental Status/Objective Patient Orientation: Person, Confused, Place ADL-Treatment Therapy Code Descriptions/Definitions Functional [place] Measure: 0=Not Assessed/NA 4=Minimal Assistance 1=Total Assistance 5=Supervision or Setup 2=Maximal Assistance 6=Modified [place] 3=Moderate Assistance 7=Complete IndependenceSCALE: Activities may be completed with or without assistive devices. 7-Tpmnjdymlm-zqdgrke completes the activity by him/herself with no assistance from a helper. 5-Set-up or Clean-up Assistance-helper sets up or cleans up; patient completes activity. [place] assists only prior to or following the activity. 4-Supervision or Touching Assistance-helper provides verbal cues and/or touching/steadying and/or contact guard assistance as patient completes activity. Assistance may be provided throughout the activity or intermittently. 3-Partial/Moderate Assistance-helper does LESS THAN HALF the effort. [place] lifts, holds or supports trunk or limbs, but provides less than half the effort. 2-Substantial/Maximal Assistance-helper does MORE THAN HALF the effort. [place] lifts or holds trunk or limbs and provides more than half the effort. 2-Atxdswxxf-wsmepb does ALL the effort. Patient does none of the effort to complete the activity. Or, the assistance of 2 or more helpers is required for the patient to complete the activity. If activity was not attempted, code reason: 7-Patient Refused. 9-Not Applicable-not attempted and the patient did not perform the activity before the current illness, exacerbation or injury. 10-Not Attempted due to Environmental Limitations-(lack of equipment, weather restraints, etc.). 88-Not Attempted due to Medical Conditions or Safety Concerns. Oral Hygiene (QC): 4 (CGA) Toileting Hygiene (QC): 4 (SBA) Toilet Transfer (QC): 4 (CGA) Other Treatment Pt in recliner. Pt transitioned to FWW, CGA, verbal cues needed for correct hand placement when standing. Pt completed functional mobility to bathroom and completed toileting, verbal cues needed for correct FWW placement and correct hand placement when sitting/standing. Pt stood at sink, completed oral hygiene and brushed her hair, CGA, verbal cues needed when completing oral hygiene, Pt placed toothpaste on toothbrush then placed it in the cup before using it and switched task to combing her hair. Pt was informed that she put toothpaste on toothbrush and that it was ready to be used, Pt stated she needed to put new toothpaste on instead. Pt completed functional mobility back to recliner, FWW, CGA, verbal cues needed for sequence when sitting down. Pt in recliner, call light in reach and all needs met. Education OT Patient Education: Correct positioning, Energy conservation, Modified ADL techniques, Progress toward Goal/Update tx plan, Purpose of tx/functional activities Teaching Recipient: Patient, Family Teaching Methods: Demonstration, Discussion Response to Teaching: Verbalize Understanding, Return Demonstration, Reinforcement Needed OT [facility] Goals Guest House Manager Goals Time Frame: Aug 06, 2021 Eating (QC): 6 Oral Hygiene (QC): 5 Toileting Hygiene (QC): 4 Shower/Bathe Self (QC): 4 Upper Body Dressing (QC): 5 Lower Body Dressing (QC): 4 On/Off Footwear (QC): 4 Additional Goals: 1-Demonstrate ADL Tasks, 2-Verbalize Understanding, 3- ImproveStrength/She[place] 1=Demonstrate adherence to instructed precautions during ADL tasks. 2=Patient will verbalize/demonstrate understanding of assistive devices/modifications for ADL. 3=Patient will improve strength/tolerance for activity to enable patient to perform ADL's. OT Education/Plan Problem List/Assessment Assessment: Decreased Activ Tolerance, Decreased UE Strength, Impaired Funct Balance, Impaired I ADL's, Impaired Self-Care Skills Discharge Recommendations Plan/Recommendations: Continue POC Treatment Plan/Plan of Care Patient would benefit from OT for education, treatment and training to promote independence in ADL's, mobility, safety and/or upper extremity function for ADL's. Plan of Care: ADL Retraining, Functional Mobility, UE Funct Exercise/Act Treatment Duration: Aug 06, 2021 Frequency: 3 times per week (3-5 times per week) Estimated Hrs Per Day: .25 hour per day Agreement: Yes Rehab Potential: Fair Time/GCodes Start Time: 10:02 Stop Time: 10:15 Total Time Billed (hr/min): 13 Billed Treatment Time 1, ADL (13) J LUIS BOSCH OT Jul 28, 2021 10:38
--- NOTE | 2021-07-28 11:08 | Physical Therapy Daily Note ---
PT Daily Note-Current Subjective Patient sitting in chair upon PT arrival, friend in the room. Patient agreeable to treatment but reports 5/10 pain in both of her knees. Mental Status Patient Orientation: Person, Place, Time, Situation Transfers SCALE: Activities may be completed with or without assistive devices. 5-Ambuujprse-igzrtnu completes the activity by him/herself with no assistance from a helper. 5-Set-up or Clean-up Assistance-helper sets up or cleans up; patient completes activity. [place] assists only prior to or following the activity. 4-Supervision or Touching Assistance-helper provides verbal cues and/or touching/steadying and/or contact guard assistance as patient completes activity. Assistance may be provided throughout the activity or intermittently. 3-Partial/Moderate Assistance-helper does LESS THAN HALF the effort. [place] lifts, holds or supports trunk or limbs, but provides less than half the effort. 2-Substantial/Maximal Assistance-helper does MORE THAN HALF the effort. [place] lifts or holds trunk or limbs and provides more than half the effort. 8-Emkozzedt-dwllmf does ALL the effort. Patient does none of the effort to complete the activity. Or, the assistance of 2 or more helpers is required for the patient to complete the activity. If activity was not attempted, code reason: 7-Patient Refused. 9-Not Applicable-not attempted and the patient did not perform the activity before the current illness, exacerbation or injury. 10-Not Attempted due to Environmental Limitations-(lack of equipment, weather restraints, etc.). 88-Not Attempted due to Medical Conditions or Safety Concerns. Sit to Stand (QC): 4 Chair/Lmg-wi-Sgeve Xfer(QC): 4 Gait Training Does the Patient Walk?: Yes Distance: 130 Walk 10 feet (QC): 4 Walk 50 ft with 2 Turns(QC): 4 Walk 150 ft (QC): 4 Exercises Seated Therapy Exercises: Ankle pumps, Long arc quads, Hip flexion, Hamstring Curls, Hip abd/add, Glut set Seated Reps: 20 Assessment Patient tolerates treatment fair. Reports increased bilateral knee pain which is why gait distance is decreased this date. Patient performs sitting therapeutic exercise as listed Patient demonstrates all transfers with CGA observed transfers. Patient ambulates 130 feet with FWW, with CGA and verbal cues for safety, progression, obstacles and conservation of energy. Patient in chair post treatment with all needs met, nursing notified, call light in hand and friend in the room. PT Group Home Goals Supervisor Tumbling [place] Rolling Goals PT Group Home Goals Time Frame: Aug 07, 2021 Roll Left & Right (QC): 6 Sit to Lying (QC): 6 Lying-Sitting on Side/Bed(QC): 6 Sit to Stand (QC): 6 Chair/Rdg-fq-Kidmk Xfer(QC): 6 Toilet Transfer (QC): 6 Does the Patient Walk: Yes Walk 10 feet (QC): 6 Walk 50ft with 2 Turns (QC): 6 Walk 150 ft (QC): 6 PT Plan Treatment/Plan Treatment Plan: Continue Plan of Care Treatment Plan: Bed Mobility, Education, Functional Activity [place], Functional Strength, Gait, Safety, Therapeutic Exercise, Transfers Treatment Duration: Aug 07, 2021 Frequency: 6 times per week Estimated Hrs Per Day: .25 hour per day Safety Risks/Education Patient Education: Gait Training, Transfer Techniques Teaching Recipient: Patient Teaching Methods: Demonstration, Discussion Response to Teaching: Verbalize Understanding, Return Demonstration Time/GCodes Time In: 30 Time Out: 955 Total Billed Treatment Time: 25 Total Billed Treatment Visit, Gait, PO Brito PT Jul 28, 2021 11:08
--- NOTE | 2021-07-28 12:07 | Progress Note - Hospitalist ---
ANGIE SNIDER U 07/28/21 1207: Subjective HPI/CC On Admission Date Seen by Provider: Jul 28, 2021 Time Seen by Provider: 11:00 Shelley Alexandre is an 86 year old female with PMH HTN, HLD, T2DM, hypothyroidism, chronic diarrhea, who presented with confusion. Her daughters are present and help with the history. She has issues with chronic diarrhea which has been worse over the past week. She reports that it started after her COVID booster. She denies blood in her stools. She has not been having nausea or vomiting. She denies abdominal pain. She has been able to eat and drink without issue. She was with her family yesterday morning when she became more confused and was not answering questions appropriately. She does use insulin. They noticed that her blood sugar was around 70 yesterday morning. They did not check it during the event. Subjective/Events-last exam Patient is still confused and unable to tell me what hospital she is at. Her sister was with her in the room and believes she is still confused. I talked to patients daughter and sister about her confusion and that we will see how her sy mptoms improve with antibiotics. Social work was able to speak with family yesterday and will plan to send her to retirement at [facility] in [place] upon discharge. Review of Systems General: No Chills, No Night Sweats HEENT: No Head Aches, No Visual Changes Pulmonary: No Dyspnea, No Cough Cardiovascular: No: Chest Pain, Palpitations Gastrointestinal: No: Nausea, Vomiting, Abdominal Pain, Diarrhea, Constipation Genitourinary: No Dysuria, No Frequency Musculoskeletal: other (knee pain) Neurological: Confusion; No: Weakness, Numbness Objective Exam Vital Signs Vital Signs Date Time Temp Pulse Resp B/P (MAP) Pulse Ox O2 Delivery O2 Flow Rate FiO2 07/28/21 08:00 36.1 81 18 165/82 (109) 94 Room Air Capillary Refill : General Appearance: No Apparent Distress, WD/WN HEENT: Normal ENT Inspection Neck: Full Range of Motion, Normal Inspection, Non Tender Respiratory: Lungs Clear, Normal Breath Sounds, No Accessory Muscle Use Cardiovascular: Regular Rate, Rhythm, No Gallop, No Murmur Gastrointestinal: Normal Bowel Sounds, Non Tender, Soft Back: Normal Inspection Extremity: Normal Inspection, Normal Range of Motion Neurologic/Psychiatric: No Motor/Sensory Deficits Skin: Normal Color, Warm/Dry Results/Procedures Lab Laboratory Tests 07/28/21 07:05 Patient resulted labs reviewed. Imaging: Reviewed Imaging Report Assessment/Plan Assessment and Plan Assess & Plan/Chief Complaint Delerium 2/ UTI - CT head unremarkable - UA: pos leuk, wbcs - urine cx showed E.coli and Morganella Morganii susceptible to rocephin - continue rocephin ETTA on CKD stage 4 - prerenal 2/2 dehydration/diarrhea - back to baseline - on bicarb Hyperkalemia - likely d/t etta - resolved - on insulin - bicarb - will continue to monitor closely T2DM - SSI - hold home meds for now - HbA1c 7.9 HTN - lisinopril - metoprolol tartrate Hypothryoidism - TSH wnl - synthroid Debility - continue PT/OT DVT ppx: lovenox Disposition: social work finding placement to retirement in [place] upon discharge SAIMA RUIZ DO 07/29/21 0523: Subjective Subjective/Events-last exam Pt is doing a lot better Less delirium Very weak Participating in PT and OT Will go to [facility] tomorrow Review of Systems General: Fatigue, Malaise Objective Exam General Appearance: No Apparent Distress, WD/WN, Chronically ill Respiratory: Lungs Clear, Normal Breath Sounds Cardiovascular: Regular Rate, Rhythm Neurologic/Psychiatric: Alert, Oriented x3 Assessment/Plan Assessment and Plan Assess & Plan/Chief Complaint Discharge to skilled nursing tomorrow Supervisory-Addendum Brief Verification & Attestation Participated in pt care: history, MDM, physical Personally performed: exam, history, MDM, supervision of care Care discussed with: Medical Student Procedures: n/a Results interpretation: Verified all documentation Verification and Attestation of Medical Student E/M Service A medical student performed and documented this service in my presence. I reviewed and verified all information documented by the medical student and made modifications to such information, when appropriate. I personally performed the physical exam and medical decision making. Saima Ruiz, Jul 29, 2021,05:22 ANGIE SNIDER Jul 28, 2021 12:07 SAIMA RUIZ DO Jul 29, 2021 05:23
[2021-07-28] MEDS: ENOXAPARIN 30 MG/0.3 ML (LOVENOX) SYR SC SCH (12:44)
--- NOTE | 2021-07-28 13:49 | Speech Therapy Daily Note ---
Speech Daily Progress Note Subjective Date Seen by Provider: Jul 28, 2021 Time Seen by Provider: 13:20 The patient was lying in bed, awake and alert upon entrance to the room. The patient greeted the clinician appropriately and was agreeable to participation in the cognitive linguistic treatment session. The patient has two family members present at bedside. Per family member, the patient has improved however remains confused. Objective - Orientation: The clinician worked with the patient to improve orientation strategies through the use of external cues. The patient was encouraged to scan her environment, making observations of items that may aid orientation information, specifically the use of the in-room white board. The patient was able to state the accurate month and year, independently. With maximum cueing, the patient was able to locate the day of the week and the date on the board. Following an approximate five minute delay, the clinician requested orientation information. The patient was able to again state the month and the year however did not recall the day of the week or the date. The patient did display eye gaze and visual scanning of the in-room white board in attempts to locate the orientation information but required maximum cueing for accuracy. The patient does participate in structured conversation displaying appropriate turn-taking however demonstrating language of confusion. Assessment Assessment Current Status: Fair Progress Treatment Plan Continue Plan of Care Speech Short Term Goals Short Term Goals Short Term Goals 1. The patient will display 90% accuracy with recall of functional memory strategies (external and internal) with mild clinician verbal cueing. Speech Fdc Goals Fdc Goals 1. The patient will display increased cognitive linguistic function for a safe return to the least restrictive environment. Speech-Plan Treatment Plan Speech Therapy Treatment Plan: Continue Plan of Care Treatment Duration: Aug 02, 2021 Frequency: 2 times per week Estimated Hrs Per Day: .25 hour per day Rehab Potential: Fair Safety Risks/Education Teaching Recipient: Patient, Family Teaching Methods: Discussion Response to Teaching: Reinforcement Needed Education Topics Provided: Orientation Strategies Time Speech Therapy Time In: 13:20 Speech Therapy Time Out: 13:40 Total Billed Time: 20 Billed Treatment Time 1BELALIZZETH Marley [address] Jul 28, 2021 13:49
[2021-07-28 15:30] VITALS: BP 180/64
[2021-07-28 20:31] VITALS: BP 138/72
[2021-07-28] MEDS: meTOprolol TARTRATE 25 MG (LOPRESSOR) TABLET PO SCH (20:38)
[2021-07-28] MEDS: MELATONIN 3 MG TABLET PO PRN (22:08)
[2021-07-29 00:35] VITALS: BP 173/74
[2021-07-29 06:06] LABS: BASOPHILS % (AUTO) 0 % (0-10); EOSINOPHILS # (AUTO) 0.2 10^3/uL (0.0-0.3); EOSINOPHILS % (AUTO) 1 % (0-10); HEMATOCRIT 34 % (35-52); HEMOGLOBIN 11.2 g/dL (11.5-16.0); LYMPHOCYTES # (AUTO) 1.2 10^3/uL (1.0-4.0); LYMPHOCYTES % (AUTO) 11 % (12-44); MEAN CORPUSCULAR HEMOGLOBIN 27 pg (25-34); MEAN CORPUSCULAR HGB CONC 33 g/dL (32-36); MEAN CORPUSCULAR VOLUME 83 fL (80-99); MEAN PLATELET VOLUME 10.3 fL (9.0-12.2); MONOCYTES # (AUTO) 1.7 10^3/uL (0.0-1.0); MONOCYTES % (AUTO) 16 % (0-12); NEUTROPHILS # (AUTO) 7.7 10^3/uL (1.8-7.8); NEUTROPHILS % (AUTO) 71 % (42-75); PLATELET COUNT 263 10^3/uL (130-400); WHITE BLOOD COUNT 10.9 10^3/uL (4.3-11.0)
[2021-07-29] MEDS: inSUlin ASPART (NovoLOG) 1 UNIT/0.01 ML (CHARGE PER UNIT) SC SCH ×2 (06:11→11:10)
[2021-07-29] MEDS: LEVOTHYROXINE 50 MCG (LEVOTHROID) TAB PO SCH (06:12)
[2021-07-29] MEDS: DICYCLOMINE 10 MG (BENTYL) CAP PO SCH ×2 (06:12→11:10)
[2021-07-29 06:31] LABS: ALBUMIN 3.5 GM/DL (3.2-4.5); BILIRUBIN,TOTAL 0.8 MG/DL (0.1-1.0); CALCIUM 9.6 MG/DL (8.5-10.1); CREATININE SERUM 1.33 MG/DL (0.60-1.30); POTASSIUM 4.5 MMOL/L (3.6-5.0); TOTAL PROTEIN 7.1 GM/DL (6.4-8.2); URIC ACID 6.9 MG/DL (2.6-7.2)
[2021-07-29 08:00] VITALS: BP 190/85
[2021-07-29 08:23] VITALS: BP 176/80
[2021-07-29] MEDS: cefTRIAXone 1 GM PRE-MIX 50 ML IV SCH (08:52)
[2021-07-29] MEDS: meTOprolol TARTRATE 50 MG (LOPRESSOR) TAB PO SCH (08:52)
[2021-07-29] MEDS: lisINopril 20 MG (PRINIVIL) TABLET PO SCH (08:52)
[2021-07-29] MEDS: SODIUM BICARBONATE 650 MG TABLET (NON-FORMULARY) PO SCH (08:52)
[2021-07-29] MEDS ORDERED: ENXP30I.3 SC (10:44)
[2021-07-29] MEDS ORDERED: DICY20TA PO (10:44)
[2021-07-29] MEDS ORDERED: LEVO50TA6 PO (10:44)
[2021-07-29] MEDS ORDERED: CEFD300C3 PO (10:44)
[2021-07-29] MEDS ORDERED: PRAV40TA2 PO (10:44)
[2021-07-29] MEDS ORDERED: CALC625T29 PO (10:44)
[2021-07-29] MEDS ORDERED: LACT1CAP62 PO (10:44)
[2021-07-29] MEDS ORDERED: INSU100I29 SQ (10:44)
[2021-07-29] MEDS ORDERED: LISI20TA26 PO (10:44)
[2021-07-29] MEDS ORDERED: NF-SODBICA PO (10:44)
[2021-07-29] MEDS ORDERED: METO50TA15 PO ×2 (10:44)
[2021-07-29] MEDS ORDERED: ASPI-999 PO (10:44)
--- NOTE | 2021-07-29 10:45 | Discharge Summary ---
Discharge Summary Hospital Course Was the Problem List Reviewed?: Yes Problems/Dx: (1) ETTA (acute kidney injury) Status: Acute (2) Hyponatremia Status: Acute (3) Diarrhea Status: Acute Qualifiers: Qualified Codes: R19.7 - Diarrhea, unspecified (4) Confusion Status: Acute (5) T2DM (type 2 diabetes mellitus) Status: Acute Qualifiers: Qualified Codes: E11.649 - Type 2 diabetes mellitus with hypoglycemia without coma; Z79.4 - director translational (current) use of insulin (6) HTN (hypertension) Status: Chronic Qualifiers: Qualified Codes: I10 - Essential (primary) hypertension (7) Hypothyroidism Status: Chronic Hospital Course Date of Admission: Jul 26, 2021 at 12:35 Admission Diagnosis : Family Physician/Provider: Cassidy Andrade MD Date of Discharge: 07/29/21 Discharge Diagnosis: Metabolic encephalopathy, hyponatremia, acute kidney injury, chronic kidney disease, dementia, delirium, UTI Hospital Course: [Hospital Course: Shelley Alexandre is an 86 year old female with a PMH of HTN, HLD, T2DM, CKD stage 4, hypothyroidism, and chronic diarrhea, who presented with confusion. She was dehydrated with ETTA and treated with fluids. A UA and urine cx showed evidence of E.coli and Morganella Morganii infection. She was teated for 4 days with IV rocephin for her UTI. She has remained confused during her hospital stay and is suspected to have delirium secondary to infection. Her kidney function is back to baseline and she has been able to work with PT/OT to gain strength and mobility. Social work has been communicating with her family about options and it was concluded that she would be discharged to [facility] in [place]. She will be continued on cefdinir 300mg BID for treatment of her UTI at that facility. ANGIE SNIDER Jul 29, 2021 12:37 Labs and Pending Lab Test: Laboratory Tests 07/28/21 15:53: Glucometer 246H 07/28/21 20:17: Glucometer 207H 07/29/21 05:17: Glucometer 238H 07/29/21 05:27: White Blood Count 10.9, Red Blood Count 4.11, Hemoglobin 11.2L, Hematocrit 34L, Mean Corpuscular Volume 83, Mean Corpuscular Hemoglobin 27, Mean Corpuscular Hemoglobin Concent 33, Red Cell Distribution Width 12.3, Platelet Count 263, Mean Platelet Volume 10.3, Immature Granulocyte % (Auto) 1, Neutrophils (%) (Auto) 71, Lymphocytes (%) (Auto) 11L, Monocytes (%) (Auto) 16H, Eosinophils (%) (Auto) 1, Basophils (%) (Auto) 0, Neutrophils # (Auto) 7.7, Lymphocytes # (Auto) 1.2, Monocytes # (Auto) 1.7H, Eosinophils # (Auto) 0.2, Basophils # (Auto) 0.0, Immature Granulocyte # (Auto) 0.1, Sodium Level 128L, Potassium Level 4.5, Chloride Level 100, Carbon Dioxide Level 17L, Anion Gap 11, Blood Urea Nitrogen 21H, Creatinine 1.33H, Estimat Glomerular Filtration Rate 39, BUN/Creatinine Ratio 16, Glucose Level 263H, Uric Acid 6.9, Calcium Level 9.6, Corrected Calcium 10.0, Total Bilirubin 0.8, Aspartate Amino Transf (AST/SGOT) 22, Alanine Aminotransferase (ALT/SGPT) 25, Alkaline Phosphatase 63, Total Protein 7.1, Albumin 3.5 07/29/21 10:41: Glucometer 333H Microbiology 07/25/21 Urine Culture - Final, Complete Escherichia coli Morganella morganii 07/25/21 C. difficile GDH Antigen & Toxins - Final, Complete Home Meds Active Sodium Bicarbonate 650 Mg Tablet 650 Mg PO TID Lovenox (Enoxaparin Sodium) 30 Mg/0.3 Ml Syringe 30 Mg SC Q24H Cefdinir 300 Mg Capsule 300 Mg PO BID Fiber Tabs (Calcium Polycarbophil) 625 Mg Tablet 625 Mg PO BID Levemir Flextouch (Insulin Detemir) 100 Unit/1 Ml Insuln.pen 20 Unit SQ BID Metoprolol Tartrate 50 Mg Tablet 25 Mg PO 1800 Probiotic (Lactobacillus Acidophilus) 1 Each Capsule 1 Each PO DAILY Dicyclomine HCl 20 Mg Tablet 20 Mg PO QID PRN Aspirin 81 Mg Tab.chew 81 Mg PO DAILY Pravastatin Sodium 40 Mg Tablet 40 Mg PO HS Levothyroxine Sodium 50 Mcg Tablet 50 Mcg PO DAILY Metoprolol Tartrate 50 Mg Tablet 50 Mg PO DAILY Lisinopril 20 Mg Tablet 20 Mg PO DAILY Reported Coq-10 (Ubidecarenone) 100 Mg Capsule 100 Mg PO DAILY Glipizide ER (Glipizide) 10 Mg Tab.er.24 10 Mg PO BID Metformin HCl 500 Mg Tablet 500 Mg PO BID WITH MEALS Assessment/Pt Instructions PCP in 1 week Discharge Planning: <30 minutes discharge planning Discharge Instructions Discharge Diet: ADA Diet Activity as Tolerated: Yes Discharge Physical Examination Vital Signs Vital Signs Date Time Temp Pulse Resp B/P (MAP) Pulse Ox O2 Delivery O2 Flow Rate FiO2 07/29/21 08:23 36.0 70 18 176/80 (112) 95 Room Air General Appearance: No Apparent Distress, WD/WN, Chronically ill Respiratory: Lungs Clear Cardiovascular: Regular Rate, Rhythm Allergies: Coded Allergies: No Known Drug Allergies (Unverified , 07/03/20) Discharge Summary Date of Admission Jul 26, 2021 at 12:35 Date of Discharge Discharge Date: Jul 29, 2021 Admission Diagnosis Acute kidney injury Discharge Diagnosis Discharge to care home tomorrow (1) ETTA (acute kidney injury) Status: Acute (2) Hyponatremia Status: Acute (3) Diarrhea Status: Acute Qualifiers: Qualified Codes: R19.7 - Diarrhea, unspecified (4) Confusion Status: Acute (5) T2DM (type 2 diabetes mellitus) Status: Acute Qualifiers: Qualified Codes: E11.649 - Type 2 diabetes mellitus with hypoglycemia without coma; Z79.4 - director translational (current) use of insulin (6) HTN (hypertension) Status: Chronic Qualifiers: Qualified Codes: I10 - Essential (primary) hypertension (7) Hypothyroidism Status: Chronic ZORAN RUIZ DO Jul 29, 2021 10:45
--- NOTE | 2021-07-29 10:45 | Discharge Inst-Skilled Nursing ---
Discharge Inst-Skilled NF Reconcile Patient Problems Problems Reviewed?: Yes Chief Complaint Shelley Alexandre is an 86 year old female with PMH HTN, HLD, T2DM, hypothyroidism, chronic diarrhea, who presented with confusion. Her daughters are present and help with the history. She has issues with chronic diarrhea which has been worse over the past week. She reports that it started after her COVID booster. She denies blood in her stools. She has not been having nausea or vomiting. She denies abdominal pain. She has been able to eat and drink without issue. She was with her family yesterday morning when she became more confused and was not answering questions appropriately. She does use insulin. They noticed that her blood sugar was around 70 yesterday morning. They did not check it during the event. Patient Instructions Patient Problems: Debility Consult/Follow Up/Orders Follow Up Appt.: PCP 1 week Skilled NF Admit to: Certification (SNF) I certify that SNF services are required to be given on an inpatient basis because of the above named patient's need for penitentiary care on a continuing basis for the conditions(s) for which he/she was receiving inpatient hospital services prior to his/her transfer to the SNF. Custodial Facility Order: Nursing Services, Osteopathy Doctor-Evaluate & Treat, Physical Therapy-Evaluate & Treat, Speech Language-Evaluate & Treat Oxygen Delivery Method: Room Air Discharge Diet: ADA Diet New & Resume Previous Orders New Medications: Cefdinir (Cefdinir) 300 Mg Capsule 300 MG PO BID, #8 CAP Enoxaparin Sodium (Lovenox) 30 Mg/0.3 Ml Syringe 30 MG SC Q24H, #14 SYRINGE Sodium Bicarbonate (Sodium Bicarbonate) 650 Mg Tablet 650 MG PO TID, #90 TAB Changed Medications: Insulin Detemir (Levemir Flextouch) 100 Unit/1 Ml Insuln.pen 20 UNIT SQ BID, #1 EA (Changed from: 45 UNIT; HS) Metoprolol Tartrate (Metoprolol Tartrate) 50 Mg Tablet 25 MG PO 1800, #30 TAB (Changed from: Removed Instructions) Continued Medications: Aspirin (Aspirin) 81 Mg Tab.chew 81 MG PO DAILY, #30 TAB (This prescription has been renewed) Calcium Polycarbophil (Fiber Tabs) 625 Mg Tablet 625 MG PO BID, #60 TAB (This prescription has been renewed) Dicyclomine HCl (Dicyclomine HCl) 20 Mg Tablet 20 MG PO QID PRN for DIARRHEA, #60 TAB (This prescription has been renewed) Lactobacillus Acidophilus (Probiotic) 1 Each Capsule 1 EACH PO DAILY, #30 CAP (This prescription has been renewed) Levothyroxine Sodium (Levothyroxine Sodium) 50 Mcg Tablet 50 MCG PO DAILY, #30 TAB (This prescription has been renewed) Lisinopril (Lisinopril) 20 Mg Tablet 20 MG PO DAILY, #30 TAB (This prescription has been renewed) Metoprolol Tartrate (Metoprolol Tartrate) 50 Mg Tablet 50 MG PO DAILY, #30 TAB (This prescription has been renewed) Pravastatin Sodium (Pravastatin Sodium) 40 Mg Tablet 40 MG PO HS, #30 TAB (This prescription has been renewed) Ubidecarenone (Coq-10) 100 Mg Capsule 100 MG PO DAILY, CAP Discontinued Medications: Glipizide (Glipizide ER) 10 Mg Tab.er.24 10 MG PO BID, TAB Metformin HCl (Metformin HCl) 500 Mg Tablet 500 MG PO BID WITH MEALS Saima Bryant Jul 29, 2021 10:44 SAIMA BRYANT DO Jul 29, 2021 10:45
--- NOTE | 2021-07-29 10:55 | Physical Therapy Daily Note ---
PT Daily Note-Current Subjective Patient presented laying in bed and agreed to participate in physical therapy. Mental Status Patient Orientation: Person Attachments: IV Transfers SCALE: Activities may be completed with or without assistive devices. 8-Ehgakruvur-extplqq completes the activity by him/herself with no assistance from a helper. 5-Set-up or Clean-up Assistance-helper sets up or cleans up; patient completes activity. [place] assists only prior to or following the activity. 4-Supervision or Touching Assistance-helper provides verbal cues and/or touching/steadying and/or contact guard assistance as patient completes activit y. Assistance may be provided throughout the activity or intermittently. 3-Partial/Moderate Assistance-helper does LESS THAN HALF the effort. [place] lifts, holds or supports trunk or limbs, but provides less than half the effort. 2-Substantial/Maximal Assistance-helper does MORE THAN HALF the effort. [place] lifts or holds trunk or limbs and provides more than half the effort. 8-Dlctmuyyf-eepbxh does ALL the effort. Patient does none of the effort to complete the activity. Or, the assistance of 2 or more helpers is required for the patient to complete the activity. If activity was not attempted, code reason: 7-Patient Refused. 9-Not Applicable-not attempted and the patient did not perform the activity before the current illness, exacerbation or injury. 10-Not Attempted due to Environmental Limitations-(lack of equipment, weather restraints, etc.). 88-Not Attempted due to Medical Conditions or Safety Concerns. Lying to Sitting/Side of Bed(Q: 4 Sit to Stand (QC): 4 Chair/Yud-ux-Skduo Xfer(QC): 4 Patient required CGA for all transfers. Gait Training Distance: 250' Walk 10 feet (QC): 4 Walk 50 ft with 2 Turns(QC): 4 Walk 150 ft (QC): 4 Gait Assistive Device: FWW Patient ambulated for 250' with minimal fatigue. Assessment Patient ambulated for 250' with CGA and FWW. Patient reported slight pain in bilateral knees but was able to ambulate without complaints. Patient is more steady today during ambulation. Patient left post tx in her chair with phone, nurse call, and all needs met. PT Care Home Goals Application Engineer Goals PT Application Engineer Goals Time Frame: Aug 07, 2021 Roll Left & Right (QC): 6 Sit to Lying (QC): 6 Lying-Sitting on Side/Bed(QC): 6 Sit to Stand (QC): 6 Chair/Jnx-pc-Gispn Xfer(QC): 6 Toilet Transfer (QC): 6 Does the Patient Walk: Yes Walk 10 feet (QC): 6 Walk 50ft with 2 Turns (QC): 6 Walk 150 ft (QC): 6 PT Plan Problem List Problem List: Activity Tolerance, Functional Strength, Safety, Balance, Gait, Transfer, Bed Mobility, ROM Treatment/Plan Treatment Plan: Continue Plan of Care Treatment Plan: Bed Mobility, Education, Functional Activity Shea, Functional Strength, Gait, Safety, Therapeutic Exercise, Transfers Treatment Duration: Aug 07, 2021 Frequency: 6 times per week Estimated Hrs Per Day: .25 hour per day Safety Risks/Education Patient Education: Gait Training, Safety Issues Teaching Recipient: Patient Teaching Methods: Discussion Time/GCodes Time In: 940 Time Out: 957 Total Billed Treatment Time: 17 Total Billed Treatment 1 Visit Gait 17 min DILLON MCKEON PT Jul 29, 2021 10:55
--- NOTE | 2021-07-29 11:35 | Occupational Ther Daily Note ---
OT Current Status-Daily Note Subjective Pt in recliner. Pt had 4 family members present in room. Pt states right knee pain. Pt agreeable to OT tx. Mental Status/Objective Patient Orientation: Person, Confused ADL-Treatment Therapy Code Descriptions/Definitions Functional [place] Measure: 0=Not Assessed/NA 4=Minimal Assistance 1=Total Assistance 5=Supervision or Setup 2=Maximal Assistance 6=Modified [place] 3=Moderate Assistance 7=Complete IndependenceSCALE: Activities may be completed with or without assistive devices. 3-Gijeeyxknr-aocanmf completes the activity by him/herself with no assistance from a helper. 5-Set-up or Clean-up Assistance-helper sets up or cleans up; patient completes activity. [place] assists only prior to or following the activity. 4-Supervision or Touching Assistance-helper provides verbal cues and/or touching/steadying and/or contact guard assistance as patient completes activity. Assistance may be provided throughout the activity or intermittently. 3-Partial/Moderate Assistance-helper does LESS THAN HALF the effort. [place] lifts, holds or supports trunk or limbs, but provides less than half the effort. 2-Substantial/Maximal Assistance-helper does MORE THAN HALF the effort. [place] lifts or holds trunk or limbs and provides more than half the effort. 0-Gkqhvhckx-txikzs does ALL the effort. Patient does none of the effort to complete the activity. Or, the assistance of 2 or more helpers is required for the patient to complete the activity. If activity was not attempted, code reason: 7-Patient Refused. 9-Not Applicable-not attempted and the patient did not perform the activity before the current illness, exacerbation or injury. 10-Not Attempted due to Environmental Limitations-(lack of equipment, weather restraints, etc.). 88-Not Attempted due to Medical Conditions or Safety Concerns. Oral Hygiene (QC): 4 (CGA) Toileting Hygiene (QC): 4 (SBA) Toilet Transfer (QC): 4 (CGA) Other Treatment Pt in recliner. Pt transitioned to FWW, CGA, verbal cues needed for correct hand placement when standing. Pt completed functional mobility to bathroom to complete toileting, verbal cues needed for correct hand placement and FWW placement when sitting/standing. Pt transitioned to sink to complete hand hygiene, FWW, CGA. Pt brushed her hair and completed oral hygiene, cues needed to turn on/off electric toothbrush. Pt completed functional mobility back to recliner, FWW, CGA, cues needed for correct hand placement when sitting. Pt in recliner, call light in reach, BLE propped up with a pillow placed underneath. Education OT Patient Education: Correct positioning, Energy conservation, Modified ADL techniques, Progress toward Goal/Update tx plan, Purpose of tx/functional activities Teaching Recipient: Patient, Family Teaching Methods: Demonstration, Discussion Response to Teaching: Verbalize Understanding, Return Demonstration, Reinforcement Needed OT Calender Tender Goals Calender Tender Goals Time Frame: Aug 06, 2021 Eating (QC): 6 Oral Hygiene (QC): 5 Toileting Hygiene (QC): 4 Shower/Bathe Self (QC): 4 Upper Body Dressing (QC): 5 Lower Body Dressing (QC): 4 On/Off Footwear (QC): 4 Additional Goals: 1-Demonstrate ADL Tasks, 2-Verbalize Understanding, 3- ImproveStrength/[place] 1=Demonstrate adherence to instructed precautions during ADL tasks. 2=Patient will verbalize/demonstrate understanding of assistive devices/modifications for ADL. 3=Patient will improve strength/tolerance for activity to enable patient to perform ADL's. OT Education/Plan Problem List/Assessment Assessment: Decreased Activ Tolerance, Decreased UE Strength, Impaired Funct Balance, Impaired I ADL's, Impaired Self-Care Skills Discharge Recommendations Plan/Recommendations: Continue POC Treatment Plan/Plan of Care Patient would benefit from OT for education, treatment and training to promote independence in ADL's, mobility, safety and/or upper extremity function for ADL's. Plan of Care: ADL Retraining, Functional Mobility, UE Funct Exercise/Act Treatment Duration: Aug 06, 2021 Frequency: 3 times per week (3-5 times per week) Estimated Hrs Per Day: .25 hour per day Agreement: Yes Rehab Potential: Fair Time/GCodes Start Time: 11:17 Stop Time: 11:27 Total Time Billed (hr/min): 10 Billed Treatment Time 1, ADL (10) J LUIS BOSCH OT Jul 29, 2021 11:35
--- NOTE | 2021-07-29 12:37 | Progress Note ---
ANGIE SNIDER 07/29/21 1237: Progress Note Hospital Course: Shelley Alexandre is an 86 year old female with a PMH of HTN, HLD, T2DM, CKD stage 4, hypothyroidism, and chronic diarrhea, who presented with confusion. She was dehydrated with ETTA and treated with fluids. A UA and urine cx showed evidence of E.coli and Morganella Morganii infection. She was teated for 4 days with IV rocephin for her UTI. She has remained confused during her hospital stay and is suspected to have delirium secondary to infection. Her kidney function is back to baseline and she has been able to work with PT/OT to gain strength and mobility. Social work has been communicating with her family about options and it was concluded that she would be discharged to [facility] in [place]. She will be continued on cefdinir 300mg BID for treatment of her UTI at that facility. SAIMA RUIZ DO 07/30/21 0519: Supervisory-Addendum Brief Verification & Attestation Participated in pt care: history, MDM, physical Personally performed: exam, history, MDM, supervision of care Care discussed with: Medical Student Procedures: n/a Results interpretation: Verified all documentation Verification and Attestation of Medical Student E/M Service A medical student performed and documented this service in my presence. I reviewed and verified all information documented by the medical student and made modifications to such information, when appropriate. I personally performed the physical exam and medical decision making. Saima Ruiz, Jul 30, 2021,05:19 ANGIE SNIDER Jul 29, 2021 12:37 SIAMA RUIZ DO Jul 30, 2021 05:19
--- NOTE | 2021-07-29 18:52 | Physician Query Clarification ---
Physician Query-General Query to Physician: 1. Metabolic encephalopathy, present on admission 2. Other explanation of clinical findings 3. Unable to determine (no explanation for clinical findings) The medical record reflects the following clinical evidence: Clinical Indicators: Admission Na 126, DENTURE FINISHER: " Around 9:00 became more confused and was answering questions inappropriately for family". GCS 14 on admission, BS 69 on arrival decreased to 59, "Deleriuim 2/2 UTI", Documentation after treatment of "doing a lot better less delirium" Risk Factor(s): Advanced age, UTI, Hyponatremia, Hypoglycemia Treatment: CT Head (unremarkable), Neuro checks, frequent lab monitoring, Lactated Ringer's 1 L, ceftriaxone, sodium bicarbonate tablet, Please clarify and document your clinical opinion in the progress notes and discharge summary including the definitive and/or presumptive diagnosis, (suspected or probable), related to the above clinical findings. Please include clinical findings supporting your diagnosis. Danni Wilson MSN, RN Clinical Energy Efficiency Finance Manager [phone] [email or web address] PHYSICIAN RESPONSE: Based on the clinical findings in the record, please respond to the query above on this document as an addendum. Physician Response: Physician Response metabolic encephalopathy If you have questions please contact: Deli Cook: Ext: Thank you for your time and cooperation. Clinical Energy Efficiency Finance Manager/Deli Cook This is a permanent part of the medical record DANNI WILSON Jul 29, 2021 18:52 ZORAN RUIZ DO Jul 29, 2021 19:51
== END 2021-07-29 12:40 | DRG 682 ==
LOC: EDUNIT# 21:31 → ER FS 21:33 → 4TH 07-25 03:35 → OBSVTOIN 07-26 12:35
PROVIDERS: ADMIT Internal Medicine; ATTEND Internal Medicine
DX: N17.9 Acute kidney failure, unspecified (principal); G93.41 Metabolic encephalopathy; E87.1 Hypo-osmolality and hyponatremia; N39.0 Urinary tract infection, site not specified; E03.9 Hypothyroidism, unspecified; Z79.4 Long term (current) use of insulin; I12.9 Hypertensive chronic kidney disease with stage 1 through stage 4 chronic kidney disease, or unspecified chronic kidney disease; E78.5 Hyperlipidemia, unspecified; E11.22 Type 2 diabetes mellitus with diabetic chronic kidney disease; N18.4 Chronic kidney disease, stage 4 (severe); B96.20 Unspecified Escherichia coli [E. coli] as the cause of diseases classified elsewhere; B96.89 Other specified bacterial agents as the cause of diseases classified elsewhere; F03.90 Unspecified dementia, unspecified severity, without behavioral disturbance, psychotic disturbance, mood disturbance, and anxiety; K52.9 Noninfective gastroenteritis and colitis, unspecified; E87.5 Hyperkalemia; Z87.891 Personal history of nicotine dependence; Z95.1 Presence of aortocoronary bypass graft; I25.10 Atherosclerotic heart disease of native coronary artery without angina pectoris; I25.2 Old myocardial infarction; E11.649 Type 2 diabetes mellitus with hypoglycemia without coma; Z79.84 Long term (current) use of oral hypoglycemic drugs; Z79.890 Hormone replacement therapy; Z79.899 Other long term (current) drug therapy
CPT/HCPCS: 36415; 70450; 71045; 80048; 80053; 81000; 82947; 83036; 84443; 84484; 84550; 85025; 85610; 85730; 87077; 87088; 87186; 87324; 87449; 94760; G0378

== ENCOUNTER → 2021-08-01 | Outpatient (CLI) | payer MEDICARE ==
[~2021-08-01] MED LIST: ASPI-999 PO; CALC625T29 PO; CEFD300C3 PO; DICY20TA PO; ENXP30I.3 SC; GLIP10TA13 PO; GLIP10TA24 PO; INSU100I29 SQ; LACT1CAP62 PO; LEVO50TA6 PO; LISI20TA26 PO; METF-397 PO; METO-333 PO; METO50TA15 PO; NF-SODBICA PO; PRAV40TA2 PO; UBID100C17 PO
[2021-08-01 16:52] LABS: CLARITY,URINE CLERA; COLOR,URINE YELLOW; GLUCOSE, URINE (UA) 2+ (NEGATIVE); PROTEIN,URINE TRACE (NEGATIVE)
[2021-08-01 16:53] LABS: BACTERIA,URINE TRACE /HPF; BILIRUBIN,URINE NEGATIVE (NEGATIVE); KETONES,URINE NEGATIVE (NEGATIVE); LEUKOCYTE ESTERASE ,URINE TRACE (NEGATIVE); NITRITE,URINE NEGATIVE (NEGATIVE); WBC,URINE 50-100 /HPF
[2021-08-01 16:54] LABS: HEMATOCRIT 35 % (35-52); HEMOGLOBIN 11.7 g/dL (11.5-16.0); MEAN CORPUSCULAR HEMOGLOBIN 28 pg (25-34); MEAN CORPUSCULAR HGB CONC 33 g/dL (32-36); MEAN CORPUSCULAR VOLUME 83 fL (80-99); MEAN PLATELET VOLUME 10.2 fL (9.0-12.2); PLATELET COUNT 354 10^3/uL (130-400); WHITE BLOOD COUNT 8.1 10^3/uL (4.3-11.0)
[2021-08-01 17:06] LABS: ALBUMIN 3.8 GM/DL (3.2-4.5); BILIRUBIN,TOTAL 0.2 MG/DL (0.1-1.0); CALCIUM 9.7 MG/DL (8.5-10.1); CREATININE SERUM 1.44 MG/DL (0.60-1.30); POTASSIUM 5.2 MMOL/L (3.6-5.0); TOTAL PROTEIN 6.6 GM/DL (6.4-8.2)
== END ==
PROVIDERS: ATTEND Family Medicine
DX: N17.9 Acute kidney failure, unspecified (principal)
CPT/HCPCS: 36415; 80053; 81000; 85027; 87088

== ENCOUNTER → 2021-08-13 | Outpatient (CLI) | payer MEDICARE ==
[2021-08-13 20:35] LABS: BILIRUBIN,URINE NEGATIVE (NEGATIVE); CLARITY,URINE CLEAR; COLOR,URINE YELLOW; GLUCOSE, URINE (UA) 1+ (NEGATIVE); KETONES,URINE NEGATIVE (NEGATIVE); LEUKOCYTE ESTERASE ,URINE NEGATIVE (NEGATIVE); NITRITE,URINE NEGATIVE (NEGATIVE); PROTEIN,URINE 1+ (NEGATIVE)
[2021-08-13 20:39] LABS: BACTERIA,URINE TRACE /HPF
[2021-08-13 20:40] LABS: WHITE BLOOD CELL CASTS, URINE 0-2 /LPF
== END ==
LOC: LAB FS 20:26
PROVIDERS: ATTEND Family Medicine
DX: N39.0 Urinary tract infection, site not specified (principal)
CPT/HCPCS: 81000; 87088

== ENCOUNTER → 2021-08-17 | Outpatient (CLI) | payer MEDICARE ==
[2021-08-17 10:40] LABS: CREATININE SERUM 1.42 MG/DL (0.60-1.30); POTASSIUM 4.7 MMOL/L (3.6-5.0)
[2021-08-17 10:41] LABS: ALBUMIN 3.8 GM/DL (3.2-4.5); BILIRUBIN,TOTAL 0.3 MG/DL (0.1-1.0); TOTAL PROTEIN 7.2 GM/DL (6.4-8.2)
== END ==
LOC: LAB FS 08:59
PROVIDERS: ATTEND Registered Nurse Emergency
DX: E03.9 Hypothyroidism, unspecified (principal); E11.9 Type 2 diabetes mellitus without complications; E78.5 Hyperlipidemia, unspecified
CPT/HCPCS: 36415; 80053; 80061; 83036; 84443

== ENCOUNTER → 2021-09-16 | Outpatient (CLI) | payer MEDICARE ==
[2021-09-16 17:55] LABS: BILIRUBIN,URINE NEGATIVE (NEGATIVE); CLARITY,URINE CLEAR; COLOR,URINE YELLOW; GLUCOSE, URINE (UA) TRACE (NEGATIVE); KETONES,URINE NEGATIVE (NEGATIVE); LEUKOCYTE ESTERASE ,URINE TRACE (NEGATIVE); NITRITE,URINE NEGATIVE (NEGATIVE); PROTEIN,URINE 2+ (NEGATIVE)
[2021-09-16 18:02] LABS: BACTERIA,URINE TRACE /HPF; RBC,URINE RARE /HPF
== END ==
LOC: IHC 17:10
PROVIDERS: ATTEND Family Medicine
DX: R30.9 Painful micturition, unspecified (principal)
CPT/HCPCS: 81000; 87088

== ENCOUNTER → 2022-02-16 | Outpatient (CLI) | payer MEDICARE ==
[2022-02-16 10:43] LABS: CREATININE SERUM 1.43 MG/DL (0.60-1.30); POTASSIUM 4.6 MMOL/L (3.6-5.0)
[2022-02-16 10:44] LABS: ALBUMIN 4.3 GM/DL (3.2-4.5); BILIRUBIN,TOTAL 0.2 MG/DL (0.1-1.0); CALCIUM 10.1 MG/DL (8.5-10.1); TOTAL PROTEIN 7.4 GM/DL (6.4-8.2)
== END ==
LOC: LAB FS 08:31
PROVIDERS: ATTEND Family Medicine
DX: E03.9 Hypothyroidism, unspecified (principal); E11.9 Type 2 diabetes mellitus without complications; I10 Essential (primary) hypertension; E78.5 Hyperlipidemia, unspecified; R30.9 Painful micturition, unspecified
CPT/HCPCS: 36415; 80053; 80061; 83036; 84443